=== PATIENT | female | born 1990 | race Caucasian/White ===

== ENCOUNTER 2017-05-17 21:18 | Emergency (ER) | payer OTHER ==
[2017-05-17 21:33] VITALS: BP 106/69; PULSE 77; TEMP 98.1; BMI 24.6
--- NOTE | 2017-05-17 21:40 | PDOC ---
History of Present Illness - General History Source: Patient Exam Limitations: No Limitations - History of Present Illness Initial Comments: 05/17/17 23:44 The patient is a 27 year old female, , 15 weeks old , with past medical history of ectopic who presents to the ED with lower abdominal pain that began last night. The patient states that the pain began last night while at work and states it has been worsening ever since. She rates the pain 8/10 in severity and states it is radiating towards the sides but not her back. It is worsened when she lies down and has no alleviating factors. It is associated with nausea, and the patient states she has been spitting up yellow sputum.The patient relates her pain to the same pain she felt while having her ectopic . She denies any vaginal bleeding, genital pain, dysuria, hematuria, or other urinary symptoms. The patient complains of fever, but in the ED she is afebrile. She denies cough, CP, SOB. <Nelda Valle - Last Filed: 05/17/17 23:44> <Ashely Patel - Last Filed: 05/18/17 01:04> - General Chief Complaint: Pain Stated Complaint: PAIN (15WKS ) Time Seen by Provider: 05/17/17 21:39 Past History <Nelda Valle - Last Filed: 05/17/17 23:44> - Past Medical History Other medical history: low bp - Immunization History Immunization Up to Date: Yes - Suicide/Smoking/Psychosocial Hx Smoking History: Never smoked Hx Alcohol Use: No Substance Use Type: None <Ashely Patel - Last Filed: 05/18/17 01:04> - Past Medical History Allergies/Adverse Reactions: Allergies Allergy/AdvReac Type Severity Reaction Status Date / Time No Known Allergies Allergy Verified 05/17/17 21:33 Home Medications: Ambulatory Orders NK [No Known Home Medication] 12/25/14 Review of Systems - Review of Systems Able to Perform ROS?: Yes Comments:: 05/17/17 23:44 GENERAL/CONSTITUTIONAL: Present: subjective fever No chills. No weakness. HEAD, EYES, EARS, NOSE AND THROAT: No change in vision. No ear pain or discharge. No sore throat CARDIOVASCULAR: No chest pain or shortness of breath. RESPIRATORY: No cough, wheezing, or hemoptysis. GASTROINTESTINAL: Present: lower abdominal pain, nausea, vomiting No diarrhea or constipation. GENITOURINARY: No dysuria, frequency, or change in urination. MUSCULOSKELETAL: No joint or muscle swelling or pain. No neck or back pain. SKIN: No rash NEUROLOGIC: No headache, vertigo, loss of consciousness, or change in strength/ sensation. ENDOCRINE: No increased thirst. No abnormal weight change. HEMATOLOGIC/LYMPHATIC: No anemia, easy bleeding, or history of blood clots. ALLERGIC/IMMUNOLOGIC: No hives or skin allergy. All Other Systems: Reviewed and Negative <[facility] - Last Filed: 05/17/17 23:44> *Physical Exam - Vital Signs Last Vital Signs Temp Pulse Resp BP Pulse Ox 98.1 F 77 18 106/69 99 05/17/17 21:30 05/17/17 21:30 05/17/17 21:30 05/17/17 21:30 05/17/17 21:30 - Physical Exam Comments: 05/17/17 23:46 GENERAL: Awake, alert, and fully oriented, in no acute distress HEAD: No signs of trauma EYES: PERRLA, EOMI, sclera anicteric, conjunctiva clear ENT: Auricles normal inspection, hearing grossly normal, nares patent, oropharynx clear without exudates. Moist mucosa NECK: Normal ROM, supple, no lymphadenopathy, JVD, or masses LUNGS: Breath sounds equal, clear to auscultation bilaterally. No wheezes, and no crackles HEART: Regular rate and rhythm, normal S1 and S2, no murmurs, rubs or gallops ABDOMEN: Gravid, Soft, nontender, normoactive bowel sounds. No guarding, no rebound. No masses BEDSIDE ULTRASOUND: Single IUP, movement, hr 131 bpm, no free fluid or adnexal masses. EXTREMITIES: Normal range of motion, no edema. No clubbing or cyanosis. No cords, erythema, or tenderness NEUROLOGICAL: Cranial nerves II through XII grossly intact. Normal speech, normal gait <[facility] - Last Filed: 05/17/17 23:44> - Vital Signs Last Vital Signs Temp Pulse Resp BP Pulse Ox 98.1 F 77 18 106/69 99 05/17/17 21:30 05/17/17 21:30 05/17/17 21:30 05/17/17 21:30 05/17/17 21:30 <Ashely Patel - Last Filed: 05/18/17 01:04> Medical Decision Making - Medical Decision Making 05/18/17 01:01 Pt presents to the ED complaining of mild suprapubic pain. Patient is 15 weeks by dates. Denies vaginal bleeding or urinary complaints. Concern for demise, UTI. + IUP with heart and movement on transabdominal US. No evidence of infection on UA. Will discharge home. Patient instructed in comoran to return to the ED for worsening symptoms or vaginal bleeding and to follow up with her OB on Saturday. <Ashely Patel - Last Filed: 05/18/17 01:04> *DC/Admit/Observation/Transfer - Attestations Scribe Attestion: 05/17/17 23:47 Documentation prepared by Nelda Valle, acting as medical malpractice paralegal for Ashely Patel MD. <Nelda Valle - Last Filed: 05/17/17 23:44> - Discharge Dispostion Admit: No <Ashely Patel - Last Filed: 05/18/17 01:04> Diagnosis at time of Disposition: Abdominal pain affecting , antepartum - Discharge Dispostion Disposition: HOME Condition at time of disposition: Good - Patient Instructions Printed Discharge Instructions: DI for Abdominal Pain-Adult Additional Instructions: return to the ED for severe pain, pain with nausea and vomiting, pain with fever , vaginal bleeding. Follow up with your doctor on Saturday.
[2017-05-18 00:14] LABS: URINE APPEARANCE SLCLOUDY; URINE BILIRUBIN NEGATIVE (NEGATIVE); URINE BLOOD NEGATIVE (NEGATIVE); URINE COLOR LTYELLOW; URINE GLUCOSE (UA) NEGATIVE (NEGATIVE); URINE KETONE TRACE (NEGATIVE); URINE NITRITE NEGATIVE (NEGATIVE); URINE PROTEIN NEGATIVE (NEGATIVE); URINE UROBILINOGEN NEGATIVE mg/dL (0.2-1.0)
[2017-05-18 10:04] LABS: URINE LEUK ESTERASE TRACE (NEGATIVE)
== END 2017-05-18 01:32 | disposition home or self-care (01) ==
LOC: JER 21:18
DX: O26.892 Other specified pregnancy related conditions, second trimester (principal); R10.30 Lower abdominal pain, unspecified; Z3A.15 15 weeks gestation of pregnancy
CPT/HCPCS: 81003; 81015; 84703; 99282-25

== ENCOUNTER 2017-10-31 18:20 | Inpatient (IN) | payer OTHER ==
[2017-10-31] MEDS ORDERED: DEXTROSE 5%-LACTATED RINGERS 1,000 ML IV SCH (20:00)
[2017-10-31 20:53] VITALS: BMI 30.2
[2017-10-31] MEDS ORDERED: PROMETHAZINE HCL 25 MG/1 ML VIAL ONE (21:46)
[2017-10-31] MEDS ORDERED: BUTORPHANOL TARTRATE 1 MG/ML VIAL ONE ×2 (21:46)
[2017-10-31] MEDS ORDERED: BUTORPHANOL TARTRATE 1 MG/ML VIAL IVPUSH ONE (21:48)
[2017-10-31] MEDS ORDERED: PROMETHAZINE HCL 25 MG/1 ML VIAL IVPB ONE (21:48)
[2017-10-31] MEDS ORDERED: PROMETHAZINE HCL 25 MG/1 ML VIAL IVPUSH ONE (21:48)
--- NOTE | 2017-10-31 21:54 | HP ---
Past Medical History - Primary Care Physician PCP:: Ranjan Bates - Admission Chief Complaint: 39,4 weeks, labor History of Present Illness: 27 yo f g 2 p010 edc by sono 11/03/17 , 39.4 weeks, in labor cx 5 cm 80. vx -1 , mi, fhr cat ,contraction q 2 to 3 cm History Source: Patient Limitations to Obtaining History: No Limitations - Past Medical History ...: 2 ...Para: 0 ...Term: 0 ...: 0 ...Spon : 1 ...Induced : 0 ...Multiple Gestation: 0 ...LMP: 01/27/17 ... Weeks Gestation by Dates: 39.4 ...EDC by Dates: 11/03/17 ...EDC by Sono: 11/03/17 - Past Surgical History Hx Myomectomy: No Hx Transabdominal Cerclage: No - Smoking History Smoking history: Never smoked Have you smoked in the past 12 months: No - Alcohol/Substance Use Hx Alcohol Use: No - Social History Usual Living Arrangement: Yes: With Spouse History of Recent Travel: No Home Medications - Allergies Allergies/Adverse Reactions: Allergies Allergy/AdvReac Type Severity Reaction Status Date / Time No Known Allergies Allergy Verified 10/31/17 19:07 - Home Medications Home Medications: Ambulatory Orders Iron 1 tab PO DAILY 10/15/17 Vitamins (Sjr) - 1 tab PO DAILY 10/15/17 Diphenhydramine HCl [Benadryl Capsule -] 25 mg PO PRN PRN 10/31/17 Review of Systems - Review of Systems Constitutional: reports: No Symptoms Eyes: reports: No Symptoms HENT: reports: No Symptoms Neck: reports: No Symptoms Cardiovascular: reports: No Symptoms Respiratory: reports: No Symptoms Gastrointestinal: reports: No Symptoms Genitourinary: reports: No Symptoms Breasts: reports: No Symptoms Reported Musculoskeletal: reports: No Symptoms Integumentary: reports: No Symptoms Neurological: reports: No Symptoms Endocrine: reports: No Symptoms Hematology/Lymphatic: reports: No Symptoms Psychiatric: reports: No Symptoms Physical Exam - Maternity Vital Signs: Vital Signs Temperature 98.7 F 10/31/17 20:00 Pulse Rate 71 10/31/17 20:00 Respiratory Rate 18 10/31/17 20:00 Blood Pressure 122/81 10/31/17 20:00 O2 Sat by Pulse Oximetry (%) Constitutional: Yes: Well Nourished, No Distress, Calm Eyes: Yes: WNL, Conjunctiva Clear, EOM Intact HENT: Yes: WNL, Atraumatic, Normocephalic Neck: Yes: WNL, Supple, Trachea Midline Cardiovascular: Yes: WNL, Regular Rate and Rhythm Breast(s): Yes: WNL - Abdominal Exam/OB Fundal Height: 40 Number of Fetuses: Single Presentation: Vertex Contractions: Yes Regularity: Regular Intensity: Mod/Strong Monitor Mode: External Heart Rate Location: LLQ Accelerations: Uniform Decelerations: None - Vaginal Exam/OB Vaginal Bleediing: No Speculum Exam: No Dilatation (cm): 5 cm Effacement (%): 80 Amniotic Membrane Status: Bulging Presentation: Vertex/Position Station: -2 - Physical Exam Musculoskeletal: Yes: WNL Extremities: Yes: Deformity Edema: LLE: Trace, RLE: Trace Deep Tendon Reflex Grade: Normal +2 Psychiatric: Yes: WNL Hemorrhage Risk Assessment - Risk Factors Medium Risk Factors: Yes: None High Risk Factors: Yes: None Risk Score: 1 Risk Level: Medium Risk Problem List - Problems (1) 39 weeks gestation of Code(s): Z3A.39 - 39 WEEKS GESTATION OF (2) Labor established Code(s): CEA4420 - Assessment/Plan plan admit, fhm, pain management
[2017-10-31 22:06] LABS: BASO % 0.5 % (0-2.0); EOS % 0.9 % (0-4.5); HEMATOCRIT 34.2 % (32.4-45.2); HEMOGLOBIN 11.2 GM/dL (10.7-15.3); MCH 23.9 pg (25.7-33.7); MCHC 32.9 g/dl (32.0-36.0); MEAN CELL VOLUME 72.7 fl (80-96); MEAN PLT VOLUME 8.4 fl (7.5-11.1); MONO % 5.8 % (3.8-10.2); NEUT % 76.8 % (42.8-82.8); PLATELET COUNT 313 K/MM3 (134-434); RDW 17.2 % (11.6-15.6); WHITE BLOOD COUNT 6.9 K/mm3 (4.0-10.0)
[2017-10-31 22:24] LABS: INR 0.88 (0.82-1.09); PROTHROMBIN TIME (PATIENT) 9.9 SEC (9.98-11.88)
[2017-10-31 22:27] LABS: ACTIVATED PTT 28.5 SECONDS (26.9-34.4)
[2017-10-31 22:30] LABS: ANION GAP 12 (8-16); BLOOD UREA NITROGEN 9 mg/dL (7-18); CALCIUM 8.7 mg/dL (8.5-10.1); CHLORIDE 104 mmol/L (98-107); CO2 22 mmol/L (21-32); CREATININE 0.5 mg/dL (0.55-1.02); GLUCOSE,RANDOM 79 mg/dL (74-106); POTASSIUM 4.1 mmol/L (3.5-5.1); SODIUM 138 mmol/L (136-145)
[2017-11-01] MEDS ORDERED: BUTORPHANOL TARTRATE 1 MG/ML VIAL ONE ×2 (02:29)
[2017-11-01] MEDS ORDERED: PROMETHAZINE HCL 25 MG/1 ML VIAL ONE (02:29)
[2017-11-01] MEDS ORDERED: PROMETHAZINE HCL 25 MG/1 ML VIAL IVPB ONE (02:45)
[2017-11-01] MEDS ORDERED: BUTORPHANOL TARTRATE 1 MG/ML VIAL IVPB ONE (02:45)
[2017-11-01] MEDS ORDERED: OXYTOCIN 20 UNITS in 0.9% NS 20 UNIT/1,000 ML INFUS.BAG IV ONE (07:08)
[2017-11-01] MEDS ORDERED: LIDOCAINE HCL 1% PRESERVATIVE FREE - 30ML VIAL ONE (07:08)
--- NOTE | 2017-11-01 07:29 | PN ---
Progress Note (short form) - Note Progress Note: cx 9 cm, srom, mec amniotic fluid , fhr cat 1, regular contraction Problem List - Problems (1) 39 weeks gestation of Code(s): Z3A.39 - 39 WEEKS GESTATION OF (2) Labor established Code(s): QQX2707 -
[2017-11-01] MEDS: OXYTOCIN 20 UNITS in 0.9% NS 20 UNIT/1,000 ML INFUS.BAG IV SCH ×2 (08:35→12:00)
[2017-11-01] MEDS ORDERED: BENZOCAINE 20% 57 GM BOTTLE TP PRN (08:49)
[2017-11-01] MEDS ORDERED: METHYLERGONOVINE MALEATE 0.2 MG/1 ML AMP IM PRN (08:49)
[2017-11-01] MEDS ORDERED: WITCH HAZEL 50% (TUCKS) 40 PAD/JAR PAD TP PRN (08:49)
[2017-11-01] MEDS ORDERED: BENZOCAINE 28 GM HEMORRHOIDAL OINTMENT TP PRN (08:49)
[2017-11-01] MEDS ORDERED: oxyCODONE HCL 5 MG TABLET PO PRN (08:49)
[2017-11-01] MEDS ORDERED: BISACODYL 10 MG SUPP.RECT RC PRN (08:49)
[2017-11-01] MEDS ORDERED: D5W-LR W/ 20 UNITS OXYTOCIN 1,000 ML IV SCH (09:00)
[2017-11-01 09:16] LABS: ARTERIAL BLD GAS O2 SATURATION 36.2 % (90-98.9); ARTERIAL BLOOD GAS BASE EXCESS -2.3 meq/l (-2-2); ARTERIAL BLOOD GAS PCO2 49.9 mmHg (35-45); ARTERIAL BLOOD GAS pH 7.31 (7.35-7.45)
[2017-11-01 09:22] LABS: VENOUS PC02 40.4 mmHg (38-52); VENOUS PH 7.36 (7.32-7.42); VENOUS PO2 28.7 mmHg (28-48)
[2017-11-01] MEDS: ACETAMINOPHEN 325 MG TABLET (FP) PO PRN ×2 (09:35→16:26)
[2017-11-01] MEDS: IBUPROFEN 600 MG TABLET (FP) PO PRN ×2 (09:35→16:25)
[2017-11-01] MEDS: PRENATAL VITAMINS W/ FOLIC ACID TABLET (FP) PO SCH (11:31)
[2017-11-01] MEDS: FERROUS SO4 325 MG TABLET (FP) PO SCH ×2 (11:32→21:27)
[2017-11-02] MEDS: ACETAMINOPHEN 325 MG TABLET (FP) PO PRN ×4 (01:36→21:22)
[2017-11-02] MEDS: IBUPROFEN 600 MG TABLET (FP) PO PRN ×4 (01:36→21:21)
[2017-11-02] MEDS ORDERED: CALAMINE 8% TOPICAL LOTION 177 ML BOTTLE TP PRN (08:19)
--- NOTE | 2017-11-02 08:41 | PN ---
Post Progress Note - Subjective Subjective: c/o itching, h/o rash during Post Day: 1 Type of Delivery: Vital Signs: Vital Signs Temperature 98.2 F 11/02/17 06:00 Pulse Rate 69 11/02/17 06:00 Respiratory Rate 20 11/02/17 06:00 Blood Pressure 94/53 11/02/17 06:00 O2 Sat by Pulse Oximetry (%) 100 11/01/17 09:30 Breast Exam: Yes: Soft, Other (plans to BF ). No: Engorged Uterus: Yes: Fundus Firm, Fundus below umbilicus, Non-tender Lochia: Yes: Rubra Lochia, amount: Moderate Extremities: Yes: Calves non-tender Perineum: Yes: Episiotomy (healing. perineal soreness mild ) Activity: Ambulating - Labs Labs: CBC WBC 6.9 K/mm3 (4.0-10.0) 10/31/17 21:20 RBC 4.70 M/mm3 (3.60-5.2) 10/31/17 21:20 Hgb 11.2 GM/dL (10.7-15.3) 10/31/17 21:20 Hct 34.2 % (32.4-45.2) 10/31/17 21:20 MCV 72.7 fl (80-96) L 10/31/17 21:20 MCH 23.9 pg (25.7-33.7) L 10/31/17 21:20 MCHC 32.9 g/dl (32.0-36.0) 10/31/17 21:20 RDW 17.2 % (11.6-15.6) H D 10/31/17 21:20 Plt Count 313 K/MM3 (134-434) 10/31/17 21:20 MPV 8.4 fl (7.5-11.1) D 10/31/17 21:20 Neutrophils % 76.8 % (42.8-82.8) 10/31/17 21:20 Lymphocytes % 16.0 % (8-40) D 10/31/17 21:20 Monocytes % 5.8 % (3.8-10.2) 10/31/17 21:20 Eosinophils % 0.9 % (0-4.5) 10/31/17 21:20 Basophils % 0.5 % (0-2.0) 10/31/17 21:20 Assessment/Plan pp day #1 stable plan cbc today
[2017-11-02 09:31] LABS: BASO % 0.3 % (0-2.0); EOS % 0.8 % (0-4.5); HEMATOCRIT 22.9 % (32.4-45.2); HEMOGLOBIN 7.5 GM/dL (10.7-15.3); LYMPH % 14.2 % (8-40); MCH 24.1 pg (25.7-33.7); MCHC 32.9 g/dl (32.0-36.0); MEAN CELL VOLUME 73.2 fl (80-96); MEAN PLT VOLUME 7.7 fl (7.5-11.1); MONO % 5.1 % (3.8-10.2); NEUT % 79.6 % (42.8-82.8); PLATELET COUNT 235 K/MM3 (134-434); RBC 3.13 M/mm3 (3.60-5.2); RDW 16.8 % (11.6-15.6); WHITE BLOOD COUNT 10.1 K/mm3 (4.0-10.0)
[2017-11-02] MEDS: FERROUS SO4 325 MG TABLET (FP) PO SCH ×2 (10:39→21:21)
[2017-11-02] MEDS: PRENATAL VITAMINS W/ FOLIC ACID TABLET (FP) PO SCH (10:39)
[2017-11-02] MEDS ORDERED: SENNOSIDES/DOCUSATE COMBO (SENNA PLUS) TABLET (UD) PO PRN (22:00)
--- NOTE | 2017-11-03 08:39 | PN ---
Post Progress Note - Subjective Subjective: pt does not c/o dizziness. c/o fatigue Post Day: 2 Type of Delivery: Vital Signs: Vital Signs Temperature 98.4 F 11/02/17 21:00 Pulse Rate 87 11/02/17 21:00 Respiratory Rate 20 11/02/17 21:00 Blood Pressure 113/55 11/02/17 21:00 O2 Sat by Pulse Oximetry (%) 100 11/01/17 09:30 Breast Exam: Yes: Soft. No: Engorged Uterus: Yes: Fundus Firm, Fundus below umbilicus, Non-tender Lochia: Yes: Rubra Lochia, amount: Small Extremities: Yes: Calves non-tender Perineum: Yes: Episiotomy (perineum healing ) Activity: Ambulating - Labs Labs: CBC WBC 10.1 K/mm3 (4.0-10.0) H D 11/02/17 08:00 RBC 3.13 M/mm3 (3.60-5.2) L D 11/02/17 08:00 Hgb 7.5 GM/dL (10.7-15.3) L D 11/02/17 08:00 Hct 22.9 % (32.4-45.2) L D 11/02/17 08:00 MCV 73.2 fl (80-96) L 11/02/17 08:00 MCH 24.1 pg (25.7-33.7) L 11/02/17 08:00 MCHC 32.9 g/dl (32.0-36.0) 11/02/17 08:00 RDW 16.8 % (11.6-15.6) H 11/02/17 08:00 Plt Count 235 K/MM3 (134-434) D 11/02/17 08:00 MPV 7.7 fl (7.5-11.1) 11/02/17 08:00 Neutrophils % 79.6 % (42.8-82.8) 11/02/17 08:00 Lymphocytes % 14.2 % (8-40) 11/02/17 08:00 Monocytes % 5.1 % (3.8-10.2) 11/02/17 08:00 Eosinophils % 0.8 % (0-4.5) 11/02/17 08:00 Basophils % 0.3 % (0-2.0) 11/02/17 08:00 Assessment/Plan anemia s/p vag delivery hemodynamically stable anemia counselled blood transfusion versus expectant management with po iron & pnv, high iron diet r/b/a explained pt declines transfusion . discharge today
[2017-11-03] MEDS: IBUPROFEN 600 MG TABLET (FP) PO PRN (10:18)
[2017-11-03] MEDS: ACETAMINOPHEN 325 MG TABLET (FP) PO PRN (10:18)
[2017-11-03] MEDS: PRENATAL VITAMINS W/ FOLIC ACID TABLET (FP) PO SCH (10:19)
[2017-11-03] MEDS: FERROUS SO4 325 MG TABLET (FP) PO SCH (10:19)
[2017-11-03 12:24] VITALS: BP 100/59; PULSE 77; TEMP 98.2
--- NOTE | 2017-11-07 15:36 | DS ---
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 Signs: Vital Signs Temperature 98.2 F 11/03/17 09:00 Pulse Rate 77 11/03/17 09:00 Respiratory Rate 20 11/03/17 09:00 Blood Pressure 100/59 11/03/17 09:00 O2 Sat by Pulse Oximetry (%) 100 11/01/17 09:30 Constitutional: Yes: Well Nourished, No Distress, Calm Eyes: Yes: WNL, Conjunctiva Clear, EOM Intact HENT: Yes: WNL, Atraumatic, Normocephalic Neck: Yes: WNL, Supple, Trachea Midline Cardiovascular: Yes: WNL, Regular Rate and Rhythm Respiratory: Yes: WNL, Regular, CTA Bilaterally Gastrointestinal: Yes: WNL ...Rectal Exam: Yes: WNL Renal/: Yes: WNL ....Post : Yes: Uterus firm, Uterus non-tender, Slight lochia rubra Breast(s): Yes: WNL Musculoskeletal: Yes: WNL Extremities: Yes: WNL Edema: No Integumentary: Yes: WNL Neurological: Yes: WNL, Alert, Oriented ...Motor Strength: WNL Psychiatric: Yes: WNL, Alert, Oriented Labs: CBC, BMP 11/02/17 08:00 10/31/17 21:20 Delivery - Delivery Vaginal Delivery: Spontaneous (no complication) Type of Anesthesia: Local Episiotomy/Laceration: Midline EBL (cc): 500 Delivery, Single - Stages of Labor Date 1st Stage Initiatied: 10/31/17 Time 1st Stage Initiated: 13:00 Date 2nd Stage Initiated: 11/01/17 Time 2nd Stage Initiated: 07:00 Date of Delivery: 11/01/17 Time of Delivery: 08:25 Time Placenta Delivered: 08:30 - 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 [employer] Present: No Gender: Male Weight: 7 lb 14 oz Total Hours ROM (Hrs/Mins): 1HR/45MIN - 1 Minute Total Score: 9 5 Minutes Total Score: 9 - Feeding Plan Initial Plan: Elected not to breastfeed exclusively throughout hospitalization Discharge Summary Reason For Visit: LABOR Procedures: Principal: Hospital Course: no complication Condition: Stable - Instructions Diet, Activity, Other Instructions: Discharge Instructions * Out of Bed * * Regular Diet,high iron diet * Maira Care * Avoid sex for 6 weeks If you experience excessive bleeding or fever over 101 degrees, call doctor, the clinic or go to the Emergency Room. Referrals: Ranjan Bates MD [Staff Physician] - Disposition: HOME - Home Medications Comprehensive Discharge Medication List: Ambulatory Orders Iron 1 tab PO DAILY 10/15/17 Vitamins (Sjr) - 1 tab PO DAILY 10/15/17 Diphenhydramine HCl [Benadryl Capsule -] 25 mg PO PRN PRN 10/31/17 Acetaminophen [Tylenol .Regular Strength -] 650 mg PO Q3H PRN tablet 11/02/17 Benzocaine [Americaine 20% [place] -] 1 spray TP PRN PRN bottle 11/02/17 Calamine 8% Topical Lotion - 1 applic TP QID PRN bottle 11/02/17 Ferrous Sulfate [Feosol] 325 mg PO BID #60 tab 11/02/17 Ibuprofen [Motrin -] 200 mg PO Q4H PRN tablet 11/02/17 Vitamins (Sjr) - 1 tab PO DAILY #30 tablet 11/02/17
== END 2017-11-03 13:30 | disposition home or self-care (01) | DRG 560 ==
LOC: JDEL 18:20 → JLDR 20:00 → J3W 11-01 10:41
PROVIDERS: ADMIT Obstetrics & Gynecology; ATTEND Obstetrics & Gynecology
PROC: 0W8NXZZ Division of Female Perineum, External Approach (ICD-10-PCS; principal; 2017-11-01)
DX: O99.02 Anemia complicating childbirth (principal); D64.9 Anemia, unspecified; Z3A.39 39 weeks gestation of pregnancy; Z37.0 Single live birth
CPT/HCPCS: 36415; 36600; 59409; 80048; 82803; 85025; 85610; 85730; 86593; 86850; 86900; 86901

== ENCOUNTER 2018-01-16 17:33 | Inpatient (IN) | payer OTHER ==
--- NOTE | 2018-01-16 17:41 | PDOC ---
Rapid Medical Evaluation Time Seen by Provider: 01/16/18 17:39 Medical Evaluation: Allergies Allergy/AdvReac Type Severity Reaction Status Date / Time No Known Allergies Allergy Verified 10/31/17 19:07 I have performed a brief in-person evaluation of this patient. The patient presents with a chief complaint of: epigastric pain today Pertinent physical exam findings: pain with palpation of epigastric region I have ordered the following: hcg The patient will proceed to the ED for further evaluation. Discharge Disposition - Diagnosis Epigastric abdominal pain - Referrals - Patient Instructions - Post Discharge Activity
--- NOTE | 2018-01-16 18:40 | PDOC ---
History of Present Illness - General Chief Complaint: Pain Stated Complaint: ABDOMINAL AND SIDE PAIN Time Seen by Provider: 01/16/18 17:39 - History of Present Illness Initial Comments: Previously healthy 27 year old female with 01/16/18 19:01 Past History - Past Medical History Allergies/Adverse Reactions: Allergies Allergy/AdvReac Type Severity Reaction Status Date / Time No Known Allergies Allergy Verified 01/16/18 17:42 Home Medications: Ambulatory Orders Ibuprofen [Motrin -] 200 mg PO Q4H PRN tablet 11/02/17 Vitamins (Sjr) - 1 tab PO DAILY #30 tablet 11/02/17 Asthma: No Cancer: No Cardiac Disorders: No Diabetes: No HTN: No Seizures: No Thyroid Disease: No - Reproductive History (#): 2 Para: 1 - Immunization History Immunization Up to Date: Yes - Suicide/Smoking/Psychosocial Hx Smoking History: Never smoked Have you smoked in the past 12 months: No Hx Alcohol Use: No Drug/Substance Use Hx: No Substance Use Type: None Hx Substance Use Treatment: No *Physical Exam - Vital Signs Last Vital Signs Temp Pulse Resp BP Pulse Ox 98 F 69 20 104/55 99 01/16/18 17:35 01/16/18 17:35 01/16/18 17:35 01/16/18 17:35 01/16/18 17:35 *DC/Admit/Observation/Transfer Diagnosis at time of Disposition: Epigastric abdominal pain - Referrals - Patient Instructions - Post Discharge Activity
--- NOTE | 2018-01-16 19:26 | PDOC ---
Attending Attestation - HPI HPI: 01/16/18 19:27 The patient is a 27 year old female with a significant PMH of cholestasis who presents to the emergency department right upper quadrant and epigastric pain during her . The patient states the RUQ and epigastric pain is worsened after eating spicy foods. The patient denies any burning sensation in her chest of sour taste in her mouth. The patient denies chest pain, shortness of breath, headache and dizziness. Denies fever, chills, nausea, vomit, diarrhea and constipation. Denies dysuria, frequency, urgency and hematuria. Allergies: NKA Past surgical history: None reported. Social history: No reported alcohol, drug, or cigarette use. - Physicial Exam PE: 01/16/18 19:26 Constitutional: Awake, alert, oriented. No acute distress. Head: Normocephalic. Atraumatic Eyes: PERRL. EOMI. Conjunctivae are not pale. Neck: Supple. Full ROM. No lymphadenopathy. Cardiovascular: Regular rate. Regular rhythm. S1, S2 regular. Distal pulses are 2+ and symmetric. Pulmonary/Chest: No evidence of respiratory distress. Clear to auscultation bilaterally No wheezing, rales or rhonchi. Abdominal: (+) Tenderness to the epigastrium and right upper quadrant. (+) Voluntary guarding. Soft and non-distended. No rebound or rigidity. No organomegaly. No palpable masses. Good bowel sounds. Back: No CVA tenderness. Musculoskeletal: No edema. No cyanosis. No clubbing. Full range of motion in all extremities. Nocalf tenderness. Radial/pedal pulses are intact and 2+ bilaterally Skin: Skin is warm and dry. No petechiae. No purpura. Neurological: Alert and oriented to person, place, and time. Cranial nerves II -XII are grossly intact. Normal speech. Strength is grossly symmetric. No sensory deficits. Psychiatric: Good eye contact. Normal interaction, affect and behavior. - Medical Decision Making <Savannah Klein - Last Filed: 01/16/18 19:34> - Resident Resident Name: Marylin Noble - ED Attending Attestation I have performed the following: I have examined & evaluated the patient, The case was reviewed & discussed with the resident, I agree w/resident's findings & plan, Exceptions are as noted - Medical Decision Making 01/16/18 19:23 I, Dr. Anabell Daugherty, DO, attest that this document has been prepared under my direction and personally reviewed by me in its entirety. I further attest, that it accurately reflects all work, treatment, procedures and medical decision -making performed by me. 01/16/18 19:23 a/p: 27yo female with hx of cholestasis during her preg with RUQ and epigastric pain -no sour taste in mouth or burning in chest -pain after eating spicy food -differential includes PUD, pancreatitis, Biliary colic -will obtain labs, RUQ u/s -will medicate and reassess -IV placed 01/16/18 20:59 pt with elevated LFT pt with cholelithiasis on ultrasound pt with pain on exam will discuss with Surgery 01/16/18 22:03 pt with elevated WBC, elevated lft, gallstones and pain willing to stay for surgery eval call placed to [facility] 01/16/18 22:[address] Perez - will place in obs to diann will start abx <Anabell Daugherty - Last Filed: 01/16/18 22:26>
[2018-01-16 19:35] LABS: BASO % 0.4 % (0-2.0); EOS % 0.4 % (0-4.5); HEMOGLOBIN 11.4 GM/dL (10.7-15.3); LYMPH % 8.8 % (8-40); MCH 24.3 pg (25.7-33.7); MCHC 32.6 g/dl (32.0-36.0); MEAN CELL VOLUME 74.4 fl (80-96); MEAN PLT VOLUME 7.7 fl (7.5-11.1); MONO % 5.4 % (3.8-10.2); PLATELET COUNT 490 K/MM3 (134-434); WHITE BLOOD COUNT 13.1 K/mm3 (4.0-10.0)
[2018-01-16 19:55] LABS: INR 0.96 (0.82-1.09); PROTHROMBIN TIME (PATIENT) 10.8 SEC (9.7-13.0)
[2018-01-16 20:05] LABS: ALBUMIN 4.4 g/dl (3.4-5.0); ALK PHOS 172 U/L (45-117); ANION GAP 10 (8-16); BILIRUBIN,TOTAL 0.5 mg/dL (0.2-1.0); BLOOD UREA NITROGEN 15 mg/dL (7-18); CALCIUM 9.4 mg/dL (8.5-10.1); CHLORIDE 102 mmol/L (98-107); CO2 29 mmol/L (21-32); CREATININE 0.7 mg/dL (0.55-1.02); GLUCOSE,RANDOM 108 mg/dL (74-106); LIPASE 177 U/L (73-393); POTASSIUM 3.9 mmol/L (3.5-5.1); SGOT/AST 143 U/L (15-37); SGPT/ALT 114 U/L (12-78); SODIUM 141 mmol/L (136-145); TOT PROT 8.6 g/dl (6.4-8.2)
[2018-01-16 20:07] LABS: URINE APPEARANCE CLOUDY; URINE BILIRUBIN NEGATIVE (<2.0 mg/dL); URINE COLOR YELLOW; URINE GLUCOSE (UA) NEGATIVE (NEGATIVE); URINE KETONE NEGATIVE (NEGATIVE); URINE LEUK ESTERASE NEGATIVE (NEGATIVE); URINE NITRITE NEGATIVE (NEGATIVE); URINE UROBILINOGEN 4.0 E.U/dl mg/dL (0.2-1.0)
[2018-01-16 20:08] LABS: URINE PROTEIN 1+ (NEGATIVE)
[2018-01-16 20:15] LABS: EPI CELLS FEW /HPF (FEW); URINE MUCUS MANY
[2018-01-16] MEDS ORDERED: FAMOTIDINE 20 MG/50 ML IVPB 20 MG/50 ML MG IVPB ONE ×2 (21:58→22:05)
[2018-01-16] MEDS ORDERED: ONDANSETRON 4 MG/2 ML VIAL IVPUSH ONE (21:58)
[2018-01-16] MEDS ORDERED: SODIUM CHLORIDE 0.9% 1000 ML INFUS.BAG IV ONE (21:58)
[2018-01-16] MEDS ORDERED: morphine CARPU-JECT 2 MG/1 ML DISP.SYRIN IVPUSH ONE (21:58)
[2018-01-16] MEDS ORDERED: MORPHINE SULFATE 2 MG/ML VIAL ONE (22:04)
[2018-01-16] MEDS ORDERED: ONDANSETRON 4 MG/2 ML VIAL ONE (22:05)
--- NOTE | 2018-01-16 22:18 | HP ---
Admitting History and Physical - Admission Chief Complaint: abdominal pain History of Present Illness: 27 yo female PMH cholestasis, cholecystitis during presents to the emergency department right upper quadrant and epigastric pain during her . The patient states the RUQ and epigastric pain is worsened after eating spicy foods. The patient denies any burning sensation in her chest of sour taste in her mouth. The patient denies chest pain, shortness of breath, headache and dizziness. Denies fever, chills, nausea, vomit, diarrhea and constipation. We were asked to assess History Source: Patient, Medical Record Limitations to Obtaining History: No Limitations - Past Medical History ...LMP: 01/16/18 - Smoking History Smoking history: Never smoked Have you smoked in the past 12 months: No - Alcohol/Substance Use Hx Alcohol Use: No History of Substance Use: reports: None - Social History Usual Living Arrangement: Yes: With Spouse History of Recent Travel: No Home Medications - Allergies Allergies/Adverse Reactions: Allergies Allergy/AdvReac Type Severity Reaction Status Date / Time No Known Allergies Allergy Verified 01/16/18 17:42 - Home Medications Home Medications: Ambulatory Orders Ibuprofen [Motrin -] 200 mg PO Q4H PRN tablet 11/02/17 Vitamins (Sjr) - 1 tab PO DAILY #30 tablet 11/02/17 Review of Systems - Review of Systems Constitutional: denies: Chills, Fever Eyes: denies: Blurred Vision, Recent Change in Vision HENT: denies: Difficult Swallowing, Throat Pain Neck: denies: Lumps, Swollen Glands Cardiovascular: denies: Chest Pain, Palpitations Gastrointestinal: reports: Abdominal Pain, Indigestion Genitourinary: denies: Discharge, Dysuria Breasts: reports: No Symptoms Reported. denies: Pain Musculoskeletal: denies: Muscle Pain, Muscle Weakness Integumentary: denies: Lesions, Rash Neurological: denies: Seizure, Syncope, Weakness Endocrine: denies: Unexplained Weight Gain, Unexplained Weight Loss Hematology/Lymphatic: denies: Easily Bruised, Excessive Bleeding Psychiatric: denies: Anxiety, Depression Physical Examination Vital Signs: Vital Signs Temperature 98 F 01/16/18 17:35 Pulse Rate 69 01/16/18 17:35 Respiratory Rate 20 01/16/18 17:35 Blood Pressure 104/55 01/16/18 17:35 O2 Sat by Pulse Oximetry (%) 99 01/16/18 17:35 Vital Signs Period Temp Pulse Resp BP Sys/Boykin Pulse Ox Last 24 Hr 97.7 F-98.4 F 57-69 18-20 102-130/51-79 95-99 Constitutional: Yes: Well Nourished, No Distress, Calm Eyes: Yes: Conjunctiva Clear, EOM Intact HENT: Yes: Atraumatic, Normocephalic Neck: Yes: Supple, Trachea Midline Cardiovascular: Yes: Regular Rate and Rhythm, S1, S2 Respiratory: Yes: Regular, CTA Bilaterally Gastrointestinal: Yes: Normal Bowel Sounds, Soft, Tenderness (RUQ, = murphys), Tenderness, Epigastrium, Tenderness, Rebound ...Rectal Exam: Yes: Deferred Renal/: No: CVA Tenderness - Left, CVA Tenderness - Right Musculoskeletal: No: Muscle Pain, Muscle Weakness Extremities: No: Cool, Cyanosis Edema: No Peripheral Pulses WNL: Yes Peripheral Pulses: Left Radial: 2+, Right Radial: 2+, Left Doralis Pedis: 2+, Right Dorsalis Pedis: 2+ Integumentary: No: Jaundice, Rash Neurological: Yes: Alert, Oriented Psychiatric: Yes: Alert, Oriented Labs: CBC, BMP 01/16/18 19:20 01/16/18 19:20 Imaging - Results Cat Scan: Report Reviewed, Image Reviewed (gallbladder disetnded with stones) Problem List - Problems (1) Calculus of gall bladder and bile duct with nonacute cholecystitis with obstruction Assessment/Plan: 27 yo female with chronic cholecystititis with intractable abdominal pain NPO and IVF hydration IV antibiotics adequate analgesia Discussed with patient risks, benefits and alternatives of laparoscopic possible open cholecystectomy, including but not limited to bleeding, infection , injury to adjacent structures, leak or injury, intraabdominal abscess, need for further procedures, ; alternatives include antibiotics, delayed or no surgery - risks of this include failure of nonoperative therapy, perforation, sepsis, recurrence, . Patient desires to proceed with operation - will take to OR for above. Informed consent signed for same. Code(s): K80.61 - CALCULUS OF GB AND BILE DUCT W CHOLECYST, UNSP, W OBST (2) Epigastric abdominal pain Code(s): R10.13 - EPIGASTRIC PAIN (3) Abdominal pain in female patient Code(s): R10.9 - UNSPECIFIED ABDOMINAL PAIN (4) Leukocytosis Code(s): D72.829 - ELEVATED WHITE BLOOD CELL COUNT, UNSPECIFIED Qualifiers: Leukocytosis type: unspecified Qualified Code(s): D72.829 - Elevated white blood cell count, unspecified
[2018-01-16] MEDS ORDERED: ONDANSETRON 4 MG/2 ML VIAL IVPUSH PRN (22:19)
[2018-01-16] MEDS ORDERED: ACETAMINOPHEN 325 MG TABLET (FP) PO PRN (22:19)
[2018-01-16] MEDS ORDERED: morphine SULFATE 4 MG/ML VIAL IVPUSH PRN (22:19)
[2018-01-16] MEDS: LACTATED RINGERS SOLUTION 1,000 ML IV SCH (23:08)
[2018-01-17 02:58] VITALS: BMI 26.4
[2018-01-17] MEDS: LACTATED RINGERS SOLUTION 1,000 ML IV SCH (05:51)
[2018-01-17 07:37] LABS: BASO % 0.6 % (0-2.0); EOS % 1.6 % (0-4.5); HEMATOCRIT 30.6 % (32.4-45.2); HEMOGLOBIN 10.2 GM/dL (10.7-15.3); MCH 24.7 pg (25.7-33.7); MCHC 33.2 g/dl (32.0-36.0); MEAN CELL VOLUME 74.5 fl (80-96); MEAN PLT VOLUME 7.6 fl (7.5-11.1); MONO % 9.5 % (3.8-10.2); NEUT % 62.3 % (42.8-82.8); PLATELET COUNT 393 K/MM3 (134-434); RBC 4.11 M/mm3 (3.60-5.2); WHITE BLOOD COUNT 5.8 K/mm3 (4.0-10.0)
[2018-01-17 07:41] LABS: INR 1.04 (0.82-1.09); PROTHROMBIN TIME (PATIENT) 11.8 SEC (9.7-13.0)
[2018-01-17] MEDS ORDERED: CEFOXITIN SODIUM 2 GM in DEXTROSE 5%-WATER - 100 ML IVPB ONE (08:00)
[2018-01-17 08:32] LABS: CHLORIDE 108 mmol/L (98-107); POTASSIUM 4.1 mmol/L (3.5-5.1); SODIUM 143 mmol/L (136-145)
[2018-01-17 08:38] LABS: ALBUMIN 3.1 g/dl (3.4-5.0); ALK PHOS 132 U/L (45-117); AMYLASE 35 U/L (25-115); ANION GAP 9 (8-16); BILIRUBIN,TOTAL 0.5 mg/dL (0.2-1.0); BLOOD UREA NITROGEN 10 mg/dL (7-18); CALCIUM 8.5 mg/dL (8.5-10.1); CO2 26 mmol/L (21-32); CREATININE 0.5 mg/dL (0.55-1.02); GLUCOSE,RANDOM 84 mg/dL (74-106); LIPASE 99 U/L (73-393); SGOT/AST 86 U/L (15-37); SGPT/ALT 102 U/L (12-78); TOT PROT 6.3 g/dl (6.4-8.2)
--- NOTE | 2018-01-17 08:44 | EKG ---
Test Reason : Blood Pressure : / mmHG Vent. Rate : 059 BPM Atrial Rate : 059 BPM P-R Int : 154 ms QRS Dur : 072 ms QT Int : 434 ms P-R-T Axes : 056 048 035 degrees QTc Int : 429 ms SINUS BRADYCARDIA WITH SINUS ARRHYTHMIA NONSPECIFIC T WAVE ABNORMALITY NO PREVIOUS ECGS AVAILABLE Confirmed by DAY RAMOS MD ([id number]) on 01/17/2018 8:44:42 AM Referred By: Confirmed By:DAY RAMOS MD
[2018-01-17] MEDS ORDERED: PT OWN MED DRAWER 7, Y5N ONE (08:58)
[2018-01-17] MEDS ORDERED: BUPIVACAINE HCL/PF 0.5% (5MG/ML) 10 ML VIAL ONE (10:51)
[2018-01-17] MEDS ORDERED: MIDAZOLAM HCL 2 MG/2 ML SINGLE DOSE VIAL ONE (12:02)
[2018-01-17] MEDS ORDERED: PROPOFOL 20 ML ONE (12:03)
[2018-01-17] MEDS ORDERED: ROCURONIUM BROMIDE 50 MG/5 ML VIAL ONE (12:03)
[2018-01-17] MEDS ORDERED: BUPIVACAINE HCL/PF (5 MG/ML) 30 ML VIAL IJ ONE (13:21)
[2018-01-17] MEDS ORDERED: NEOSTIGMINE METHYLSULFATE 0.5 MG/ML - 10 ML MDV ONE (13:22)
--- NOTE | 2018-01-17 13:36 | OP ---
Operative Note - Note: Operative Date: 01/17/18 Pre-Operative Diagnosis: acute cholecystitis Operation: laparoscopic cholecystectomy Findings: distended GB with stones. critical view identified Post-Operative Diagnosis: Same as Pre-op Surgeon: Jose Perez Linen Room Custodian: Kishan Brewster Anesthesiologist/RN SURGICAL PCU: Jennifer Florez MD Anesthesia: General, Local (0.5% marcaine ) Specimens Removed: gallbladder Estimated Blood Loss (mls): 20 Fluid Volume Replaced (mls): 1,000 Operative Report Dictated: Yes
[2018-01-17] MEDS ORDERED: ACETAMINOPHEN 325 MG TABLET (FP) PO PRN ×2 (13:46→13:50)
[2018-01-17] MEDS ORDERED: IBUPROFEN 600 MG TABLET (FP) PO PRN ×2 (13:46→13:50)
[2018-01-17] MEDS ORDERED: ONDANSETRON 4 MG/2 ML VIAL IVPB PRN (13:47)
[2018-01-17] MEDS ORDERED: ONDANSETRON 4 MG/2 ML VIAL IVPUSH PRN ×2 (13:50→14:09)
[2018-01-17] MEDS ORDERED: LACTATED RINGERS SOLUTION 1,000 ML IV SCH ×2 (13:50→14:15)
--- NOTE | 2018-01-17 14:30 | CON.ID ---
Consult Consult Specialty:: infectious ndiseases Referred by:: Reason for Consultation:: choleycystitis during - History of Present Illness Chief Complaint: abd pain ruq History of Present Illness: 27 yo female PMH cholestasis, cholecystitis during presents to the emergency department right upper quadrant and epigastric pain during her . according tot he patient she has been having this rt upper quadrant pain for some time and food worsens the pain patient came to the hospital because the pain had increased.Was worked up and found to have leukocytosis and choleylithiasis patient was seen by surgery and patient underwent lap cholecystectomy. post op pain present otherwise the patient is doing well - History Source History Provided By: Family Member Limitations to Obtaining History: Language Barrier - Past Medical History ...LMP: 01/16/18 ...: No - Alcohol/Substance Use Hx Alcohol Use: No History of Substance Use: reports: None - Smoking History Smoking history: Never smoked Have you smoked in the past 12 months: No - Social History History of Recent Travel: No Home Medications - Allergies Allergies/Adverse Reactions: Allergies Allergy/AdvReac Type Severity Reaction Status Date / Time No Known Allergies Allergy Verified 01/16/18 17:42 - Home Medications Home Medications: Ambulatory Orders Ibuprofen [Motrin -] 200 mg PO Q4H PRN tablet 11/02/17 Vitamins (Sjr) - 1 tab PO DAILY #30 tablet 11/02/17 Review of Systems - Review of Systems Constitutional: reports: No Symptoms Eyes: reports: No Symptoms HENT: reports: No Symptoms Neck: reports: No Symptoms Cardiovascular: reports: No Symptoms Respiratory: reports: No Symptoms Gastrointestinal: reports: Abdominal Pain, Other Genitourinary: reports: No Symptoms Musculoskeletal: reports: No Symptoms Integumentary: reports: No Symptoms Neurological: reports: No Symptoms Endocrine: reports: No Symptoms Hematology/Lymphatic: reports: No Symptoms Psychiatric: reports: No Symptoms Physical Exam Vital Signs: Vital Signs Temperature 97.8 F 01/17/18 13:32 Pulse Rate 54 L 01/17/18 13:32 Respiratory Rate 14 01/17/18 13:32 Blood Pressure 105/57 01/17/18 13:32 O2 Sat by Pulse Oximetry (%) 100 01/17/18 13:32 Constitutional: Yes: Well Nourished, Calm, Mild Distress Eyes: Yes: Conjunctiva Clear HENT: Yes: Atraumatic, Normocephalic Neck: Yes: Supple, Trachea Midline Cardiovascular: Yes: Regular Rate and Rhythm Respiratory: Yes: Regular, CTA Bilaterally Gastrointestinal: Yes: Soft, Hypoactive Bowel Sounds Musculoskeletal: Yes: WNL Extremities: Yes: WNL Wound/Incision: Yes: Clean/Dry, Dressing Dry and Intact Neurological: Yes: Alert, Oriented Psychiatric: Yes: Alert, Oriented Labs: CBC, BMP 01/17/18 06:16 01/17/18 06:16 Imaging - Results Ultrasound: Report Reviewed, Image Reviewed Assessment/Plan Problem List - Problems (1) Calculus of gall bladder and bile duct with nonacute cholecystitis with obstruction Code(s): K80.61 - CALCULUS OF GB AND BILE DUCT W CHOLECYST, UNSP, W OBST (2) Epigastric abdominal pain Code(s): R10.13 - EPIGASTRIC PAIN (3) Abdominal pain in female patient Code(s): R10.9 - UNSPECIFIED ABDOMINAL PAIN (4) Leukocytosis Code(s): D72.829 - ELEVATED WHITE BLOOD CELL COUNT, UNSPECIFIED Qualifiers: Leukocytosis type: unspecified Qualified Code(s): D72.829 - Elevated white blood cell count, unspecified plan patients leukocytosis has resolved ,patient stable will hold of on continuning the abx and watch the patient rest continue per surgery monitor for fevers
[2018-01-17] MEDS: morphine SULFATE 4 MG/ML VIAL IVPUSH PRN ×2 (15:39→20:19)
[2018-01-18] MEDS: morphine SULFATE 4 MG/ML VIAL IVPUSH PRN (00:51)
--- NOTE | 2018-01-18 05:59 | DS ---
Physical Examination Vital Signs: Vital Signs Temperature 98.2 F 01/18/18 03:42 Pulse Rate 72 01/18/18 03:42 Respiratory Rate 16 01/18/18 03:42 Blood Pressure 102/50 01/18/18 03:42 O2 Sat by Pulse Oximetry (%) 95 01/17/18 21:00 Findings/Remarks: Patient seen and exmained s/p lap cholecystectomy. She was stable overnight, tolerating her diet and having normal GI and function. Using IS and ambulating. resolved leukocytosis and afebrile. Stable for discharge home. Constitutional: Yes: Well Nourished, No Distress, Calm Eyes: Yes: Conjunctiva Clear, EOM Intact HENT: Yes: Atraumatic, Normocephalic Neck: Yes: Supple, Trachea Midline Cardiovascular: Yes: Regular Rate and Rhythm, S1, S2 Respiratory: Yes: Regular, CTA Bilaterally Gastrointestinal: Yes: Normal Bowel Sounds, Soft Extremities: No: Cool, Cyanosis Edema: No Peripheral Pulses WNL: Yes Peripheral Pulses: Left Doralis Pedis: 2+, Right Dorsalis Pedis: 2+ Wound/Incision: Yes: Clean/Dry, Well Approximated, Dressing Dry and Intact Neurological: Yes: Alert, Oriented Psychiatric: Yes: Alert, Oriented Labs: CBC, BMP 01/17/18 06:16 01/17/18 06:16 Discharge Summary Reason For Visit: CHOLELITHIASIS Current Active Problems Abdominal pain in female patient (Acute) Calculus of gall bladder and bile duct with nonacute cholecystitis with obstruction (Acute) Epigastric abdominal pain (Acute) Leukocytosis (Acute) Procedures: Principal: laparoscopic cholecystectomy Hospital Course: Admitted for acute on chronic cholecystitis. Taken for an uneventul laparoscopic cholecystectomy. Stable for discharge home. Condition: Improved - Instructions Diet, Activity, Other Instructions: Postoperative instructions: You had a laparoscopic cholecystectomy on 01/17/[address] Jose Perez of [facility]. Activity: Resume your usual activities gradually, but no heavy exertion or lifting more than 10-15 pounds for 1 month. Remove dressings 48 hours after surgery; sticky tapes underneath will fall off by themselves. You may shower daily starting then, just pat the incision areas dry. Eat lightly at first, but advance to your usual diet as tolerated. Pain: For pain, you may use and alternate Tylenol (acetaminophen) and/or ibuprofen every 6 hours each as needed; this means that you can take one OR the other at 3-hour intervals. If you are prescribed a Tylenol/narcotic combination for severe pain, use it instead of plain Tylenol as needed and switch back when your pain starts decreasing. Do not take more than 4000mg of acetaminophen in a day. Take medications as prescribed or indicated on the labeling. Follow-up: Call Dr. Perez' office at [phone] to make your postop appointment (Saturday ~2 weeks after surgery). Clinic is held in the Diagnostic [facility] on the first floor of [facility]. Call the office if you have: * increasing pain not responsive to pain medication * fever of 101F or higher * vomiting * unusual or increasing bleeding or drainage from wounds * increasing redness or swelling at wound sites * inability to urinate Also, see your primary medical doctor within 1-2 weeks. Disposition: HOME - Home Medications Comprehensive Discharge Medication List: Ambulatory Orders Ibuprofen [Motrin -] 200 mg PO Q4H PRN tablet 11/02/17 Vitamins (Sjr) - 1 tab PO DAILY #30 tablet 11/02/17
[2018-01-18 13:44] VITALS: BP 106/60; PULSE 85; TEMP 98.9
--- NOTE | 2018-01-19 13:58 | OP ---
DATE OF OPERATION: 01/17/2018 PREOPERATIVE DIAGNOSIS: Acute cholecystitis. POSTOPERATIVE DIAGNOSIS: Acute cholecystitis. PROCEDURE: Laparoscopic cholecystectomy. ATTENDING SURGEON: Jose Perez MD SPOT CHECKER: Kishan Brewster MD ANESTHESIA: Jennifer Florez MD ANESTHESIA TYPE: General with local, local consisting of 0.5% Marcaine, a total of 20 mL given in an area block fashion. SPECIMEN: Gallbladder. ESTIMATED BLOOD LOSS: 20 mL. ESTIMATED IV FLUIDS ADMINISTERED DURING THE CASE: 1 L. BRIEF FINDINGS: The patient had a distended gallbladder with stones. Critical view was identified. Weck clips used. INDICATION: The patient is a 27-year-old female with a history of extdn-rv-[id number] cholecystitis. She had this during her 2 months ago, she had a return of symptoms. There was intractable abdominal pain in her right upper quadrant. She was counseled regarding the risks, benefits, and alternatives of the surgical cholecystectomy. She signed informed consent and was taken for the procedure. DESCRIPTION OF THE PROCEDURE: The patient was brought to the operating room. She was placed in the supine position on the operating table with the right arm tucked and the left arm extended 90 degrees perpendicular to the bodys axis. Lower extremities and SCDs were placed to Venodyne. The patient received intravenous antibiotics prior to surgery. The patient was induced under general anesthesia and endotracheally intubated at which point we proceeded first with a sterile shave prep and drape of the abdominal wall blocking into a surgical field for the right upper quadrant approach. When this was completed a formal time-out was done identifying the operative site and procedure. We proceeded first with a supraumbilical approach in the midline with Valentin entry in to the abdomen. It was inscribed with a marker and incised with a 15-blade scalpel. It was deep and widened through the subcutaneous tissue. We proceeded then to identify the anterior abdominal lees midline fascia which was grasped with Kochers and then divided using Bovie cautery. A blunt entry was made with a clamp towards the umbilicus into the abdomen and spread. A 12-mm Valentin trocar was then installed into the abdomen and pneumoperitoneum was established to 15 mm of mmHg. After establishing the pneumoperitoneum, we began to first inspect the right upper quadrant of the gallbladder. It was identified. A subxiphoid 5-mm port and 2 additional operating points in the right abdomen were initiated under direct visualization. Once in the abdomen we were able to grasp the gallbladder and retract it superiorly. We then turned our attention to identifying the cystic structures. The cystic duct and artery were developed in 2 dissected planes after the peritoneal attachments were taken down. The cystic duct itself was then controlled proximally and distally with Weck clips size 5 large and we then proceeded to identify the cystic artery itself. The cystic artery was also identified and controlled with standard 5 mm aluminum clips. We proceeded then with a division of both structures once the critical view was identified. The cystic artery and duct were divided and then we proceeded to dissect the gallbladder from the hepatic plate using Bovie cautery. Once this was done the gallbladder was then retrieved from the abdomen using an EndoCatch bag. After resetting the camera to the subxiphoid port, the gallbladder was retrieved from the umbilical port. Once retrieved from the abdomen, the pneumoperitoneum was reestablished and hemostasis was obtained using Bovie cautery and the hepatic plate. We then turned our attention finally to removing the ports under direct visualization. This was accomplished without incident. Counts were correct. The midline fascia was then repaired using 0 Vicryl stitch using a [id number] to repair and ablate the fascial defect. The skin was cleaned. I then closed using 4-0 Vicryl at the level for the subcuticular at the 5 mm ports and the umbilicus. The skin was cleaned. Sterile dressings were placed including Steri-Strips, gauze sponges, and Tegaderms. The patient was awoken from surgery having tolerated the procedure well. The patient was returned to recovery in stable condition. MD KARYN Reich/[id number]
--- NOTE | 2018-01-21 14:21 | PATH ---
Surgical Pathology Report Patient Name: FIDEL JAMES Med. Rec. #: [id number] /Age/Gender: 1990 (Age: 27) / F Account: [id number] Location: [address] [place] [address]/[facility] Taken: 01/17/2018 Received: 01/20/2018 Reported: 01/21/2018 Physicians: Jose Perez M.D. PHYSICIAN EMERGENCY DEPT Specimen(s) Received GALLBLADDER Clinical History Cholelithiasis Final Diagnosis GALLBLADDER, CHOLECYSTECTOMY: CHRONIC CHOLECYSTITIS AND CHOLESTEROLOSIS. CHOLELITHIASIS. Electronically Signed Olive Polanco M.D. Gross Description Received in formalin, labeled "gallbladder," is a 6.5 x 3.0 x 2.0 cm. gallbladder with a 0.2 cm. in length portion of cystic duct attached. The outer surface is green and varies from smooth to shaggy. The lumen contains green, tenacious bile as well as multiple yellow choleliths averaging 0.3 cm in greatest dimension. The mucosa is dark green and velvety with torres cholesterol stippling. The wall of the gallbladder averages 0.1 cm. in thickness. Mason Foreman/Superintendant sections are submitted in one cassette. 01/20/2018 [facility]01/20/2018
== END 2018-01-18 13:49 | disposition home or self-care (01) | DRG 263 ==
LOC: JER 17:33 → JERBED 22:10 → OBSVTOIN 22:19 → UNDOADMOB 23:17 → JERBED 23:17 → J5S 01-17 02:03
PROC: 0FT44ZZ Resection of Gallbladder, Percutaneous Endoscopic Approach (ICD-10-PCS; principal; 2018-01-17 11:30)
DX: K80.00 Calculus of gallbladder with acute cholecystitis without obstruction (principal); R10.13 Epigastric pain; D72.829 Elevated white blood cell count, unspecified
CPT/HCPCS: 36415; 76705-TC; 80053; 81003; 81015; 82150; 83690; 84703; 85025; 85610; 86850; 86900; 86901; 88304-TC; 93005; 93010; 94010; 94760; 99285-25; G0378; J7030

== ENCOUNTER 2019-05-07 05:55 | Inpatient (IN) | payer OTHER ==
[2019-05-07 06:25] VITALS: BMI 27.4
[2019-05-07] MEDS ORDERED: CITRIC ACID/SODIUM CITRATE 30 ML UNIT-DOSE CUP PO ONE ×2 (06:54→07:00)
[2019-05-07] MEDS ORDERED: ELECTROLYTE-148 SOLN 1,000 ML IV SCH ×2 (07:00)
[2019-05-07] MEDS ORDERED: ELECTROLYTE-148 SOLN 500 ML IV ONE (07:00)
[2019-05-07] MEDS ORDERED: ELECTROLYTE-148 SOLN 500 ML IV SCH (07:30)
[2019-05-07] MEDS ORDERED: PROPOFOL 20 ML ONE (07:52)
[2019-05-07] MEDS ORDERED: morphine SULFATE/PF 0.5 MG/ML (2cc Syringe - QUVA) ONE (07:52)
[2019-05-07] MEDS ORDERED: PHENYLEPHRINE HCL 10 MG/1 ML SINGLE DOSE VIAL ONE ×2 (07:52→07:53)
[2019-05-07] MEDS ORDERED: SUCCINYLCHOLINE CHLORIDE 200 MG/10 ML SYRINGE ONE (07:52)
[2019-05-07] MEDS ORDERED: ceFAZolin SODIUM 1 GM VIAL ONE (07:53)
[2019-05-07] MEDS ORDERED: OXYTOCIN 20 UNITS in 0.9% NS 20 UNIT/1,000 ML INFUS.BAG IV ONE ×2 (07:58→09:35)
--- NOTE | 2019-05-07 08:11 | HP ---
Past Medical History - Primary Care Physician PCP:: Stephie Patel - Admission Chief Complaint: 28 yrs , ectopic -1 . 39.2 weeks diagnosed breech presentation is admitted for elective c/section History of Present Illness: care at , [facility] Wt gain 10 lbs work up: 12/10/18 : O pos, Hbsag neg, Rubella immune, Rpr nr, hiv neg , rubella immune, , hcv neg pngt 120, Quantiferon neg , h/h 10.7/31.4 , plt 243 04/22/19 : gbs neg, gc/ct neg , HIV neg sono done by [facility] , NT screen not done , Quad screen neg , growth sono done 04/19/19 sono 36.6 wks, breech, portia 14.4, efw 6'11', 44%tile growth . 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 No: Hepatitis B, Hepatitis C Renal/: No: UTI ...: 3 ...Para: 1 (11/03/2017 7lbs ) ...Term: 1 ...: 0 ...Spon : 1 (11/2014 ectopic treated medically ) ...Induced : 0 ...Multiple Gestation: 0 ...LMP: 08/05/18 ... Weeks Gestation by Dates: 39.2 ...EDC by Dates: 05/12/19 ...EDC by Sono: 05/12/19 Heme/Onc: Yes: Anemia (rx po iron & pnv & high iron diet) Infectious Disease: No: AIDS, STD's, Tuberculosis Psych: No: Addictions, Anxiety, Bipolar, Depression, Panic, Psychosis, Schizophrenia, Other Endocrine: No: Diabetes Insipidus, Diabetes Mellitus, Hyperparathyroidism, Hyperthyroidism - Past Surgical History Past Surgical History: Yes: Cholecystectomy (12/2017) Hx Myomectomy: No Hx Transabdominal Cerclage: No - Smoking History Smoking history: Never smoked Have you smoked in the past 12 months: No - Alcohol/Substance Use Hx Alcohol Use: No History of Substance Use: reports: None - Social History History of Recent Travel: No Home Medications - Allergies Allergies/Adverse Reactions: Allergies Allergy/AdvReac Type Severity Reaction Status Date / Time No Known Allergies Allergy Verified 05/07/19 06:40 - Home Medications Home Medications: Ambulatory Orders Ibuprofen [Motrin -] 200 mg PO Q4H PRN tablet 11/02/17 Vitamins (Sjr) - 1 tab PO DAILY #30 tablet 11/02/17 Oxycodone HCl/Acetaminophen [Percocet 5/325 -] 1 tab PO Q6H #40 tab MDD 5 Physical Exam - Maternity Vital Signs: Vital Signs Temperature 98.0 F 05/07/19 05:55 Pulse Rate 84 05/07/19 05:55 Respiratory Rate 18 05/07/19 05:55 Blood Pressure 114/66 05/07/19 05:55 O2 Sat by Pulse Oximetry (%) Selected Entries 05/07/19 05:55 Weight 140 lb Constitutional: Yes: Well Nourished, No Distress, Calm Eyes: Yes: WNL HENT: Yes: WNL Neck: Yes: WNL Cardiovascular: Yes: WNL Lungs: Clear to auscultation Breast(s): Yes: WNL - Abdominal Exam/OB Fundal Height: 40 Number of Fetuses: Single Presentation: Breech Contractions: Yes Regularity: Irregular Intensity: Unaware Monitor Mode: External Heart Rate (range): 140 Category: I Accelerations: Uniform - Vaginal Exam/OB Vaginal Bleediing: No Dilatation (cm): close Effacement (%): unefface Presentation: Single Footling Breech Station: -3 - Physical Exam Musculoskeletal: Yes: WNL Extremities: Yes: WNL. No: Calf Tenderness Edema: LLE: Trace, RLE: Trace Integumentary: Yes: WNL Deep Tendon Reflex Grade: Normal +2 ...Motor Strength: WNL Psychiatric: Yes: WNL, Alert, Oriented - Labs Lab Results: Laboratory Tests 10/15/17 05/05/19 05/05/19 04:45 14:48 14:48 WBC 5.9 Hgb 13.1 Hct 37.3 D Plt Count 273 D Absolute Neuts (auto) 4.6 Neutrophils % 76.8 D Lymphocytes % 16.4 D Monocytes % 6.1 PT with INR INR Sodium Potassium Chloride Carbon Dioxide BUN Creatinine Random Glucose Uric Acid 3.9 Calcium Total Bilirubin GGT 25 AST ALT Total Protein Urine Protein Negative Urine Ketones Negative Ur Leukocyte Esterase 2+ H Urine WBC (Auto) 47 Urine RBC (Auto) 2 Urine Bacteria (Auto) 524.8 RPR Titer 05/05/19 05/05/19 05/05/19 14:48 14:48 14:48 WBC Hgb Hct Plt Count Absolute Neuts (auto) Neutrophils % Lymphocytes % Monocytes % PT with INR 10.80 INR 0.92 Sodium 137 Potassium 3.7 Chloride 104 Carbon Dioxide 24 BUN 6.6 L Creatinine 0.4 L Random Glucose 76 Uric Acid Calcium 8.8 Total Bilirubin 0.4 GGT AST 24 ALT 31 Total Protein 6.7 Urine Protein Urine Ketones Ur Leukocyte Esterase Urine WBC (Auto) Urine RBC (Auto) Urine Bacteria (Auto) RPR Titer Nonreactive Hemorrhage Risk Assessment - Risk Factors Medium Risk Factors: Yes: None High Risk Factors: Yes: None Risk Score: 1 Risk Level: Medium Risk Problem List - Problems (1) 39 weeks gestation of Code(s): Z3A.39 - 39 WEEKS GESTATION OF (2) Single footling breech presentation Code(s): O32.8XX0 - MATERNAL CARE FOR OTH MALPRESENTATION OF FETUS, UNSP Qualifiers: Fetus number: single or unspecified fetus Qualified Code(s): O32.8XX0 - Maternal care for other malpresentation of fetus, not applicable or unspecified Assessment/Plan 28 yrs , ectopic -1 , 39 weeks, Breech presentation , not in labor, gbs neg , admitted for primary c/section ( LFTC/Section ) r/b/a explained
[2019-05-07] MEDS ORDERED: ePHEDrine SULFATE 50 MG/1 ML AMPULE ONE (08:32)
[2019-05-07] MEDS ORDERED: OXYTOCIN 10 UNITS/ML VIAL ONE ×2 (08:46→08:47)
[2019-05-07] MEDS ORDERED: ONDANSETRON 4 MG/2 ML VIAL IVPUSH PRN (09:01)
[2019-05-07] MEDS ORDERED: morphine SULFATE/PF 0.5 MG/ML (2cc Syringe - QUVA) EP ONE (09:02)
[2019-05-07] MEDS ORDERED: IBUPROFEN 600 MG TABLET (FP) PO PRN (09:02)
[2019-05-07] MEDS ORDERED: LACTATED RINGERS SOLUTION 1,000 ML IV SCH (09:15)
[2019-05-07] MEDS ORDERED: METHYLERGONOVINE MALEATE 0.2 MG/1 ML AMP IM PRN (09:43)
[2019-05-07] MEDS ORDERED: SENNOSIDES/DOCUSATE COMBO (SENNA PLUS) TABLET (UD) PO PRN (09:43)
[2019-05-07] MEDS ORDERED: OXYTOCIN 20 UNITS in 0.9% NS 20 UNIT/1,000 ML INFUS.BAG IV SCH (09:45)
--- NOTE | 2019-05-07 09:59 | PN ---
Delivery - Delivery Vaginal Delivery: No Problems Section: Primary, Low Flap Transverse (Indication : 39.2 weeks , footling breech) Type of Anesthesia: Spinal EBL (cc): 800 (sigala output 450 ml, dar color ) Delivery, Single - Stages of Labor Date of Delivery: 05/07/19 Time of Delivery: 08:43 Time Placenta Delivered: 08:45 Placenta: Yes: Manual Removal, Uterine Exploration - Condition of Banking Services Advisor/Quality Assurance Intern Present: Yes Name: Mar Garcia Gender: Male Weight: 7 lb 6 oz Position: SP (single footling breech) Total Hours ROM (Hrs/Mins): 3 min - 1 Minute Total Score: 9 5 Minutes Total Score: 9 - [place] Feeding Plan Initial Plan: Elected not to breastfeed exclusively throughout hospitalization Remarks - Remarks Remarks: 28 yrs , ectopic -1 , 39.2 weeks , iup, breech presentation , gbs neg pnc at 2, [facility] intraop course uneventful iv ancef 2 gm given prior to incision . v/s stable
--- NOTE | 2019-05-07 10:05 | OP ---
Operative Note - Note: Operative Date: 05/14/19 Pre-Operative Diagnosis: 39 .2 weeks , footling breech presentation Operation: Primary LFTC/Section Findings: Baby Boy, TOB: 8.43 AM, 9/9, Wt 7'6" , Breech, single footling . Anesthesiologist : Dr Garcia both tubes & ovaries normal Surgeon: Stephie Patel Staking Press Operator: aMksim Raza Anesthesiologist/MULTISENSOR INTELLIGENCE OFFICER: Loren Mascorro Anesthesia: Spinal Specimens Removed: cord segment for cord gas. cord blood. placenta Estimated Blood Loss (mls): 800 Drains, Volume Out (mls): 450 (dar color, sigala out put ) Fluid Volume Replaced (mls): 1,300 (2gm iv ancef ) Operative Report Dictated: Yes
[2019-05-07] MEDS ORDERED: IBUPROFEN 800 MG/8 ML IJ IVPB ONE (10:43)
--- NOTE | 2019-05-07 10:45 | OP ---
DATE OF OPERATION: 05/07/2019 PREOPERATIVE DIAGNOSIS: A 39.2 week, footling-breech presentation. POSTOPERATIVE DIAGNOSIS: A 39.2 week, footling-breech presentation. OPERATION: Primary low-flap transverse section. SURGEON: Stephie Patel MD EATING DISORDER PSYCHOLOGIST: MAGGIE Giron ANESTHESIOLOGIST: NAHEED Mcclendon BOOM PUMP OPERATOR: Ishmael Garcia DO ANESTHESIA: Spinal. FINDINGS: This is a 28-year-old, 3, para 1-0-0-1, history of ectopic once in the past, medically treated. She is 39.2 weeks, has a diagnosed breech presentation, is not in labor. She is taken for the . PROCEDURE: Patient was taken to the operating room table, and abdomen was shaved, prepped. Leyva catheter was placed. Spinal anesthesia was given. Patient was in supine position. The abdomen was painted and draped in the usual manner. Then, Pfannenstiel incision was made through the skin, subcutaneous tissue. Anterior rectus sheath was incised transversely. Bleeding points were clamped and cauterized. Rectus muscle was from the rectus sheath. Parietal peritoneum was opened vertically. Lower flap bladder peritoneum was identified. It was incised transversely. Lower uterine segment was incised transversely, and amniotic sac was punctured. The footling breech was brought down, and another foot was higher up. Then, the knee was bent, and the foot was brought down and the body, then the shoulders, and lastly, the head was delivered, baby boy. The time of was 8:43 a.m. Immediate suction was done. Cord was clamped, cut, and the baby was handed over to the lap hand tool. Apgars were 9 and 9, and baby's weight was 7 pounds 6 ounces. Cord segment was collected for the cord blood gas, and the cord blood was collected. Then, the placenta was removed completely with the membranes. Uterine cavity was cleaned. Then, the uterine incision was closed in 2 layers. First layer was a continuous locking with a Biosyn 0 suture. Second layer was a continuous, intermittently locking with a Biosyn 0 suture. Hemostasis was checked, and then, interrupted sutures were taken in the bladder peritoneum with a Biosyn 0 suture. Both tubes and ovaries were normal. Irrigation was done. Then, the closure of the abdomen was done. The sponge, instrument, needle count was correct. The parietal peritoneum was closed with Vicryl 0 continuous sutures, and then, the muscles were approximated together with interrupted sutures. Then, bleeding on either rectus sheath was checked. Anterior rectus sheath was closed with a Vicryl 0 suture. Continuous suture was taken, and then, hemostasis was checked and interrupted sutures were taken in the subcutaneous tissue with Vicryl 0 suture. Skin was approximated with chandana. Patient tolerated procedure well. Pressure dressing was given, and blood clots were removed from the vagina. She was transferred to the recovery room in stable condition. Estimated blood loss was 800 mL. Urine output intraoperative was 450 mL. It was dar color. She received 2 g of IV Ancef prior to the incision. Total IV infusion was 1300 mL. Lashawn NGUYỄN/[id number]
[2019-05-07] MEDS: IBUPROFEN 800 MG/8 ML IJ IVPB PRN ×2 (10:50→19:34)
[2019-05-07] MEDS: CEFAZOLIN 1 GM/D5W 1 GM/50 ML BAG IVPB SCH ×2 (16:37→23:40)
[2019-05-08] MEDS: IBUPROFEN 800 MG/8 ML IJ IVPB PRN (05:09)
--- NOTE | 2019-05-08 06:29 | PN ---
Progress Note (short form) - Note Progress Note: pod 1 s/p c/s , doing well, no excess vaginal bleeding Last Vital Signs Temp Pulse Resp BP Pulse Ox 98.6 F 74 20 112/62 99 05/08/19 05:17 05/08/19 05:17 05/08/19 05:42 05/08/19 05:17 05/07/19 10:15 abdomen soft, no distension, no cva incision dry, clean no calf tenderness lochia mild plan ambulate cbc advance diet pain management
[2019-05-08 08:34] LABS: BASO % 0.2 % (0-2.0); EOS % 0.8 % (0-4.5); HEMATOCRIT 37.7 % (32.4-45.2); HEMOGLOBIN 12.8 GM/dL (10.7-15.3); LYMPH % 12.3 % (8-40); MCH 29.7 pg (25.7-33.7); MCHC 33.9 g/dl (32.0-36.0); MEAN CELL VOLUME 87.4 fl (80-96); MEAN PLT VOLUME 7.6 fl (7.5-11.1); MONO % 5.1 % (3.8-10.2); NEUT % 81.6 % (42.8-82.8); PLATELET COUNT 261 K/MM3 (134-434); RBC 4.31 M/mm3 (3.60-5.2); RDW 13.7 % (11.6-15.6); WHITE BLOOD COUNT 9.7 K/mm3 (4.0-10.0)
[2019-05-08] MEDS: CEFAZOLIN 1 GM/D5W 1 GM/50 ML BAG IVPB SCH (08:54)
--- NOTE | 2019-05-08 08:57 | PN ---
Progress Note (short form) - Note Progress Note: POD1 s/p spinal for csection. Pt's pain is well controlled today, was able to ambulate without issue. No PARRISH, no back pain, VSS, no anesthetic issues/ complications noted.
[2019-05-08] MEDS ORDERED: BISACODYL 10 MG SUPP.RECT RC PRN (09:43)
[2019-05-08] MEDS: oxyCODONE HCL 5 MG TABLET PO PRN ×3 (10:19→21:22)
[2019-05-08] MEDS: PRENATAL VITAMINS W/ FOLIC ACID TABLET (FP) PO SCH (10:19)
[2019-05-08] MEDS: ACETAMINOPHEN 325 MG TABLET (FP) PO PRN ×3 (10:21→21:22)
[2019-05-08] MEDS: SIMETHICONE 80 MG TAB.CHEW (FP) PO PRN ×3 (10:22→21:22)
--- NOTE | 2019-05-08 13:16 | DS ---
Physical Exam-SALES ENABLEMENT LEAD Vital Signs: Vital Signs Temperature 97.1 F L 05/08/19 09:29 Pulse Rate 68 05/08/19 09:29 Respiratory Rate 20 05/08/19 09:29 Blood Pressure 98/54 L 05/08/19 09:29 O2 Sat by Pulse Oximetry (%) 99 05/07/19 10:15 Selected Entries 05/10/19 10:00 Temperature 98.7 F Pulse Rate 79 Blood Pressure 109/73 Constitutional: Yes: Well Nourished, Other (pain score 5/10) Eyes: Yes: WNL HENT: Yes: WNL Neck: Yes: WNL Cardiovascular: Yes: WNL Respiratory: Yes: WNL Gastrointestinal: Yes: WNL, Normal Bowel Sounds, Soft. No: Distention ...Rectal Exam: Yes: WNL ....Post : Yes: Uterus firm, Moderate lochia rubra (perineum intact) Breast(s): Yes: WNL (breast & bottle feeding, not engorged) Musculoskeletal: Yes: WNL Extremities: Yes: WNL. No: Calf Tenderness Edema: LLE: 1+, RLE: 1+ Wound/Incision: Yes: Clean/Dry, Well Approximated, [place] Intact, Open to air, Other (will rtc for chandana removal). No: Draining, Reddened, Bleeding, Excoriated Neurological: Yes: WNL ...Motor Strength: WNL Psychiatric: Yes: WNL, Alert, Oriented Labs: CBC, BMP 05/08/19 07:35 Laboratory Tests 05/10/19 07:56 WBC 5.5 RBC 3.83 Hgb 11.5 Hct 33.6 Plt Count 278 Delivery - Delivery Vaginal Delivery: No Problems Section: Primary, Low Flap Transverse (Indication : 39.2 weeks , footling breech) Type of Anesthesia: Spinal Episiotomy/Laceration: None EBL (cc): 800 Delivery, Single - Stages of Labor Date of Delivery: 05/07/19 Time of Delivery: 08:43 Time Placenta Delivered: 08:45 Placenta: Yes: Manual Removal, Uterine Exploration - Condition 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 v/s stable post op course uneventful pp instructions given will rtc for chandana removal pt discharged on 05/10/19 by Cecilia Dean Discharge Summary Problems reviewed: Yes Reason For Visit: SCEDULED Current Active Problems Delivery by (planned) section occurring after 37 completed weeks of gestation but before 39 completed weeks gestation due to (spontaneous) onset of labor, with mention of complication (Acute) Single footling breech presentation (Acute) Procedures: Principal: Primary LFTC/section Hospital Course: uneventful Health Concerns: none Plan of Treatment: ct pnv & pain meds Goals: maternal & infant well being Condition: Stable - Instructions Diet, Activity, Other Instructions: Post Instructions DIET: Continue good diet high in protein, calcium, and iron rich foods. Drink at least eight (8) glasses of water daily in addition to other fluids. ___ Regular diet MEDICATIONS: Continue vitamins and iron as previously directed. Motrin and Tylenol may be taken for minor discomfort. ACTIVITY: Mild to moderate exercise may be started in two (2) weeks. Take frequent rest periods. Resume normal activity after six (6) week check up. WOUND CARE OF OPERATIVE SITE: Continue use of perineal bottle until vaginal discharge stops. Keep area clean. Shower daily. Keep abdominal wound dry. Report any drainage or redness to physician. Tub baths, tampons and douches are not permitted for [address] Breast feeding & or Bottle feeding BREAST CARE: (For those that are not ): If engorgement occurs: Wear tight fitting bra. Take Tylenol or Motrin for pain. Apply cold packs (ice in bags to each breast ) FAMILY PLANNING: There are many control alternatives to pursue and they should be discussed at your first office visit. You may resume sexual activity after your six (6) week check up. (Remember, breast feeding is not a contraceptive) NEXT PHYSICIAN APPOINTMENT: Be certain to call for a one (1) week appointment, unless otherwise directed. rtc Saturday for chandana removal , at [address] [place] [address] . [phone] Call Clinic or got to Emergency Dept if you have any of the following: Heavy vaginal bleeding Painful urination Leg pain Unusual odor noted to vaginal bleeding High fever Red streaking noted on breast Referrals: Stephie Patel MD [Staff Physician] - Disposition: HOME - Home Medications Comprehensive Discharge Medication List: Ambulatory Orders Ibuprofen [Motrin -] 200 mg PO Q4H PRN tablet 11/02/17 Vitamins (Sjr) - 1 tab PO DAILY #30 tablet 11/02/17 Acetaminophen [Tylenol .Regular Strength -] 500 mg PO Q4H PRN #30 tablet Ferrous Sulfate [Feosol] 325 mg PO BID tab 05/08/19 Ibuprofen [Motrin -] 600 mg PO Q4H PRN tablet 05/08/19 Ibuprofen [Motrin -] 600 mg PO Q4H PRN #30 tablet 05/08/19 Vitamins (Sjr) - 1 tab PO DAILY tablet 05/08/19 Prescription Drug Monitoring Program (I-STOP) results: I-STOP reviewed and no issues identified (pt will rtc for chandana removal)
[2019-05-08] MEDS: FERROUS SO4 325 MG TABLET (FP) PO SCH (21:22)
[2019-05-09] MEDS: oxyCODONE HCL 5 MG TABLET PO PRN ×4 (02:55→21:21)
[2019-05-09] MEDS: SIMETHICONE 80 MG TAB.CHEW (FP) PO PRN ×3 (02:55→21:21)
[2019-05-09] MEDS: IBUPROFEN 600 MG TABLET (FP) PO PRN ×4 (02:56→21:22)
[2019-05-09] MEDS: PRENATAL VITAMINS W/ FOLIC ACID TABLET (FP) PO SCH (09:42)
[2019-05-09] MEDS: FERROUS SO4 325 MG TABLET (FP) PO SCH ×2 (09:42→21:17)
[2019-05-09 19:46] VITALS: PULSE 79
[2019-05-10] MEDS: SIMETHICONE 80 MG TAB.CHEW (FP) PO PRN ×2 (02:39→09:32)
[2019-05-10] MEDS: IBUPROFEN 600 MG TABLET (FP) PO PRN ×2 (02:39→09:33)
[2019-05-10] MEDS: oxyCODONE HCL 5 MG TABLET PO PRN (02:40)
[2019-05-10] MEDS: ACETAMINOPHEN 325 MG TABLET (FP) PO PRN ×2 (02:40→09:32)
[2019-05-10 08:26] LABS: BASO % 0.4 % (0-2.0); HEMATOCRIT 33.6 % (32.4-45.2); HEMOGLOBIN 11.5 GM/dL (10.7-15.3); MCHC 34.3 g/dl (32.0-36.0); MEAN CELL VOLUME 87.6 fl (80-96); MEAN PLT VOLUME 7.3 fl (7.5-11.1); MONO % 6.3 % (3.8-10.2); NEUT % 66.3 % (42.8-82.8); PLATELET COUNT 278 K/MM3 (134-434); RBC 3.83 M/mm3 (3.60-5.2); RDW 13.9 % (11.6-15.6); WHITE BLOOD COUNT 5.5 K/mm3 (4.0-10.0)
--- NOTE | 2019-05-10 10:41 | PN ---
Post Progress Note - Subjective Subjective: Ambulating, tolerating PO, lochia decreased, voiding Post Day: 3 Type of Delivery: Primary C/S Vital Signs: Vital Signs Temperature 98.1 F 05/09/19 19:45 Pulse Rate 79 05/09/19 19:45 Respiratory Rate 20 05/09/19 19:45 Blood Pressure 111/67 05/09/19 19:45 O2 Sat by Pulse Oximetry (%) 99 05/07/19 10:15 Breast Exam: Yes: Other (deferred) Uterus: Yes: Fundus Firm Incision: Yes: Martha intact Abdomen/GI: Yes: Abdomen soft Lochia, amount: Moderate Extremities: Yes: Calves non-tender Activity: Ambulating - Labs Labs: CBC WBC 5.5 K/mm3 (4.0-10.0) 05/10/19 07:56 RBC 3.83 M/mm3 (3.60-5.2) 05/10/19 07:56 Hgb 11.5 GM/dL (10.7-15.3) 05/10/19 07:56 Hct 33.6 % (32.4-45.2) 05/10/19 07:56 MCV 87.6 fl (80-96) 05/10/19 07:56 MCH 30.0 pg (25.7-33.7) 05/10/19 07:56 MCHC 34.3 g/dl (32.0-36.0) 05/10/19 07:56 RDW 13.9 % (11.6-15.6) 05/10/19 07:56 Plt Count 278 K/MM3 (134-434) 05/10/19 07:56 MPV 7.3 fl (7.5-11.1) L 05/10/19 07:56 Absolute Neuts (auto) 3.6 K/mm3 (1.5-8.0) 05/10/19 07:56 Neutrophils % 66.3 % (42.8-82.8) 05/10/19 07:56 Lymphocytes % 25.0 % (8-40) D 05/10/19 07:56 Monocytes % 6.3 % (3.8-10.2) 05/10/19 07:56 Eosinophils % 2.0 % (0-4.5) D 05/10/19 07:56 Basophils % 0.4 % (0-2.0) 05/10/19 07:56 Nucleated RBC % 0 % (0-0) 05/10/19 07:56 Assessment/Plan POD# 3 in stable condition. PP/post-op precautions discussed. -D/C home f/U for incision check at [facility]
[2019-05-10 10:59] VITALS: BP 109/73; TEMP 98.7
[2019-05-10] MEDS: FERROUS SO4 325 MG TABLET (FP) PO SCH (11:29)
[2019-05-10] MEDS: PRENATAL VITAMINS W/ FOLIC ACID TABLET (FP) PO SCH (11:29)
--- NOTE | 2019-05-11 17:03 | PATH ---
Surgical Pathology Report Patient Name: FIDEL JAMES Med. Rec. 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 Specimen(s) Received PLACENTA Clinical History , 39.2 weeks, breech presentation Final Diagnosis PLACENTA, SECTION: 620 G THIRD TRIMESTER PLACENTA WITH TRIVASCULAR UMBILICAL CORD AND UNREMARKABLE PLACENTAL MEMBRANES. Electronically Signed Meri Salinas M.D. Gross Description The specimen is received fresh labeled placenta and is a 620 gram, 19 x 14 x 1.5 cm. placenta with attached membranes and umbilical cord. The attached membranes are burgess, opaque and insert marginally. The umbilical cord measures 14 cm. in length and averages 1.5 cm. in diameter. The cord inserts eccentrically, 4.5 cm. to the nearest margin. No true knots or strictures are identified. Cut surface of the umbilical cord reveals 3 vessels. The surface is carmona-blue with minimal fibrin deposition and appropriate caliber vessels. The maternal surface is red-brown with focal defects. Sectioning reveals red-brown, spongy parenchyma. No lesions are identified. Street Supervisor sections are submitted in three cassettes as follows: 1- membrane rolls and umbilical cord; 2-3- full thickness sections of placenta. MLSZ/05/08/2019 sanml/05/08/2019
== END 2019-05-10 11:15 | disposition home or self-care (01) | DRG 540 ==
LOC: JLDR 05:55 → J3W 11:23
PROVIDERS: ADMIT Obstetrics & Gynecology; ATTEND Obstetrics & Gynecology
PROC: 10D00Z1 Extraction of Products of Conception, Low, Open Approach (ICD-10-PCS; principal; 2019-05-07)
DX: O32.8XX0 Maternal care for other malpresentation of fetus, not applicable or unspecified (principal); Z3A.39 39 weeks gestation of pregnancy; Z37.0 Single live birth
CPT/HCPCS: 36415; 36600; 82803; 85025; 88307-TC

== ENCOUNTER 2019-06-30 23:23 | Emergency (ER) | payer OTHER ==
[2019-06-30 23:40] VITALS: TEMP 97.7; BMI 28.3
[2019-07-01 00:50] LABS: PH,URINE 5.5 (5.0-8.0); URINE APPEARANCE CLEAR; URINE BILIRUBIN NEGATIVE (NEGATIVE); URINE COLOR YELLOW; URINE GLUCOSE (UA) NEGATIVE (NEGATIVE); URINE KETONE NEGATIVE (NEGATIVE); URINE LEUK ESTERASE NEGATIVE (NEGATIVE); URINE NITRITE NEGATIVE (NEGATIVE); URINE PROTEIN NEGATIVE (NEGATIVE); URINE UROBILINOGEN 0.2 mg/dL (0.2-1.0)
--- NOTE | 2019-07-01 00:58 | PDOC ---
History of Present Illness - General Chief Complaint: Pain Stated Complaint: STOMACH PAIN Time Seen by Provider: 07/01/19 00:33 History Source: Patient Exam Limitations: Language Barrier - History of Present Illness Initial Comments: History limited bc patient speaks Surinamese - [employer] search marketing analyst [id number] used for translation Rylee is a Surinamese speaking 29 yo F w a pmh of cholecystitis/cholecystectomy, multiple C-sections, and ectopic who presents to the [facility] with epigastric abdominal pain that radiates to her back. She had two molars taken out today which caused her to have a significant amount of pain. One of her molars was infected so she is taking amoxicillin for the infection. Her molars were hurting so she took tylenol but this did not bring her enough pain relief so she then took ibuprofen 3 hours later. After she took ibuprofen her epigastric region began to hurt very badly. The pain began it radiate to her back, then it continued and she started sweating. The pain right now is a 6/10 but earlier today it was an 9/10. The pain felt like a burning/pressure like feeling and was associated with nausea but no emesis. She denies fevers, dysuria, frequency, urgency, headache, blurry vision, chest pain, SOB, difficulty breathing, numbness, tingling, or chills. LMP: July PCP: None LEATHER LEVELER: Dr. Mccormack PSH: Cholecystectomy, Social Hx: Denies smoking, drinking, or other substance usage Allergies: NKA, NKDA Past History - Past Medical History Allergies/Adverse Reactions: Allergies Allergy/AdvReac Type Severity Reaction Status Date / Time No Known Allergies Allergy Verified 05/07/19 06:40 Home Medications: Ambulatory Orders Ibuprofen [Motrin -] 200 mg PO Q4H PRN tablet 11/02/17 Vitamins (Sjr) - 1 tab PO DAILY #30 tablet 11/02/17 Acetaminophen [Tylenol .Regular Strength -] 500 mg PO Q4H PRN #30 tablet Ferrous Sulfate [Feosol] 325 mg PO BID tab 05/08/19 Ibuprofen [Motrin -] 600 mg PO Q4H PRN tablet 05/08/19 Ibuprofen [Motrin -] 600 mg PO Q4H PRN #30 tablet 05/08/19 Vitamins (Sjr) - 1 tab PO DAILY tablet 05/08/19 Asthma: No Cancer: No Cardiac Disorders: No COPD: No Diabetes: No HTN: No Seizures: No Thyroid Disease: No - Reproductive History (#): 2 Para: 1 - Immunization History Immunization Up to Date: Yes - Psycho Social/Smoking Cessation Hx Smoking History: Never smoked Have you smoked in the past 12 months: No Hx Alcohol Use: No Drug/Substance Use Hx: No Substance Use Type: None Hx Substance Use Treatment: No Review of Systems - Review of Systems Able to Perform ROS?: Yes Comments:: CONSTITUTIONAL: Absent: fever, no chills, no fatigue EYES: Absent: visual changes ENT: Present: Tooth pain Absent: ear pain, no sore throat CARDIOVASCULAR: Absent: chest pain, no palpitations RESPIRATORY: Absent: cough, no SOB GI: Present: Abdominal pain, nausea Absent: no vomiting, no constipation, no diarrhea GENITOURINARY: Absent: dysuria, no frequency, no hematuria MUSKULOSKELETAL: Present: Back pain Absent: no arthralgia, no myalgia SKIN: Absent: rash NEURO: Absent: headache *Physical Exam - Vital Signs Last Vital Signs Temp Pulse Resp BP Pulse Ox 97.7 F 67 20 95/48 L 100 06/30/19 23:36 06/30/19 23:36 06/30/19 23:36 06/30/19 23:36 06/30/19 23:36 - Physical Exam GENERAL: Well-appearing, well-nourished. Mild distress. HEENT: The right mandibular teeth are swollen and infected. Normocephalic, atraumatic. PERRL, EOM intact. CARDIOVASCULAR: Normal S1, S2. Regular rate and rhythm. PULMONARY: No evidence of respiratory distress. Lungs clear to auscultation bilaterally. No wheezing, rales or rhonchi. ABDOMEN: There is epigastric TTP. Abdomen is soft, non-distened, no guarding or rebound. EXTREMITIES: Normal ROM in all four extremities. No gross deformities. SKIN: Warm, dry. No rash NEUROLOGICAL: No focal neurological deficits. ED Treatment Course - LABORATORY CBC & Chemistry Diagram: 07/01/19 01:24 07/01/19 01:24 - ADDITIONAL ORDERS Additional order review: Laboratory Results 07/01/19 00:14 Urine Color Yellow Urine Appearance Clear Urine pH 5.5 Ur Specific [place] 1.015 Urine Protein Negative Urine Glucose (UA) Negative Urine Ketones Negative Urine Blood Negative Urine Nitrite Negative Urine Bilirubin Negative Urine Urobilinogen 0.2 Ur Leukocyte Esterase Negative Medical Decision Making - Medical Decision Making History limited patient speaks Surinamese - [employer] search marketing analyst [phone] used for translation Rylee is a Surinamese speaking 29 yo F w a pmh of cholecystitis/cholecystectomy, multiple C-sections, and ectopic who presents to the [facility] with epigastric abdominal pain that radiates to her back. She had two molars taken out today which caused her to have a significant amount of pain. One of her molars was infected so she is taking amoxicillin for the infection. Her molars were hurting so she took tylenol but this did not bring her enough pain relief so she then took ibuprofen 3 hours later. After she took ibuprofen her epigastric region began to hurt very badly. The pain began it radiate to her back, then it continued and she started sweating. The pain right now is a 6/10 but earlier today it was an 9/10. The pain felt like a burning/pressure like feeling and was associated with nausea but no emesis. She denies fevers, dysuria, frequency, urgency, headache, blurry vision, chest pain, SOB, difficulty breathing, numbness, tingling, or chills. Vital Signs Temp Pulse Resp BP Pulse Ox 97.7 F 67 20 95/48 L 100 06/30/19 23:36 06/30/19 23:36 06/30/19 23:36 06/30/19 23:36 06/30/19 23:36 DDx IBNLT: GERD, NSAID induced gastritis, pancreatitis, PUD, electrolyte/ metabolic disturbance, - IUP vs ectopic Plan: Labs, Urine, EKG, IV hydration, GI cocktail, re-assess. Urine: HCG negative, no signs of infection. Labs: Elevated Liver enziymes likely from recent amoxicillin and tylenol ingestion for her infection - Will obtain acetaminophen level EKG: QTc 446, NS rate of 68, narrow complexes, normal axis, no hypertrophy, no ST elevations or depressions, Re-assessment: Patient feels well and no longer has any abdominal pain Disposition: Home with PCP and GI FU Discharge - Discharge Information Problems reviewed: Yes Clinical Impression/Diagnosis: NSAID induced gastritis, Elevated LFTs Condition: Improved Disposition: HOME - Admission No - Follow up/Referral Referrals: Cadence Iqbal MD [Staff Physician] - Swapnil Ricardo MD [Staff Physician] - Dami Shaffer DO [Staff Physician] - - Patient Discharge Instructions Patient Printed Discharge Instructions: Gastritis (Alternative Therapy), DI for Gastritis Additional Instructions: You came into the ER with abdominal pain after you took ibuprofen. We gave you pepcis and maalox and you felt much better. We looked at your labs and noticed your liver function tests are elevated. Please schedule a follow up appointment with your primary care doctor and the stomach doctor we are referring you to, to have this monitored and taken care of. Come back to the ER with any new or worsening concerns. Print Language: ITALIAN - Post Discharge Activity
[2019-07-01] MEDS ORDERED: FAMOTIDINE 20 MG/50 ML IVPB 20 MG/50 ML MG IVPB ONE ×2 (00:59→01:49)
[2019-07-01] MEDS ORDERED: ONDANSETRON 4 MG/2 ML VIAL IVPUSH ONE (00:59)
[2019-07-01] MEDS ORDERED: MAG HYDROX/AL HYDROX/SIMETH -MYLANTA- ORAL SUSPENSION PO ONE (00:59)
[2019-07-01] MEDS ORDERED: ACETAMINOPHEN 1000 MG/100 ML VIAL (NON FORMULARY) IVPB ONE (00:59)
[2019-07-01] MEDS ORDERED: SODIUM CHLORIDE 1,000 ML IV STA (00:59)
--- NOTE | 2019-07-01 01:14 | PDOC ---
Documentation entered by Davina Yoder SCRIBE, acting as scribe for Aury Wilburn MD. Aury Wilburn MD: This documentation has been prepared by the Paresh escobar Xhesika, SCRIBE, under my direction and personally reviewed by me in its entirety. I confirm that the documentation accurately reflects all work, treatment, procedures, and medical decision making performed by me. Attending Attestation - Resident Resident Name: Boyd Farley - ED Attending Attestation I have performed the following: I have examined & evaluated the patient, The case was reviewed & discussed with the resident, I agree w/resident's findings & plan, Exceptions are as noted - HPI HPI: 07/01/19 00:58 29 yo female p/w abdominal pain that started After using Motrin for her dental extraction pain she also started amoxicillin at the same time - Physicial Exam PE: 07/01/19 01:09 petite 29 yo female in no acute distress head ncat Oral exam rt mandibular socket ,no active bleeding,uvula midline,no edema abd no rebound,no guarding,soft neuro axox3,ambulatory - Medical Decision Making 07/01/19 01:12 pt has been taking amoxicillin and motrin together after having her molar extracted benign abd exam negative test imp dyspepsia due to nsaids and ABX pt encouraged to take with food 07/01/19 01:14
[2019-07-01 01:34] LABS: BASO % 0.2 % (0-2.0); EOS % 0.4 % (0-4.5); HEMATOCRIT 36.6 % (32.4-45.2); HEMOGLOBIN 12.6 GM/dL (10.7-15.3); LYMPH % 10.3 % (8-40); MCH 29.2 pg (25.7-33.7); MCHC 34.5 g/dl (32.0-36.0); MEAN CELL VOLUME 84.8 fl (80-96); MEAN PLT VOLUME 7.3 fl (7.5-11.1); MONO % 7.9 % (3.8-10.2); NEUT % 81.2 % (42.8-82.8); PLATELET COUNT 296 K/MM3 (134-434); RBC 4.31 M/mm3 (3.60-5.2); RDW 12.6 % (11.6-15.6); WHITE BLOOD COUNT 8.8 K/mm3 (4.0-10.0)
[2019-07-01] MEDS ORDERED: ONDANSETRON 4 MG/2 ML VIAL ONE (01:48)
[2019-07-01] MEDS ORDERED: ACETAMINOPHEN INJECTION 100 ML IVPB ONE (01:48)
[2019-07-01 01:50] LABS: MAGNESIUM 2.5 mg/dL (1.8-2.4)
[2019-07-01 01:55] LABS: ALBUMIN 4.1 g/dl (3.4-5.0); BLOOD UREA NITROGEN 10.1 mg/dL (7-18); CALCIUM 8.9 mg/dL (8.5-10.1); CREATININE 0.5 mg/dL (0.55-1.3); POTASSIUM 3.6 mmol/L (3.5-5.1); TOT PROT 7.7 g/dl (6.4-8.2)
[2019-07-01 01:56] LABS: PHOSPHOROUS 3.1 mg/dL (2.5-4.9)
[2019-07-01] MEDS ORDERED: MAG HYDROX/AL HYDROX/SIMETH 30 ML UNIT-DOSE CUP ONE (03:16)
[2019-07-01 05:02] VITALS: BP 107/72; PULSE 60
--- NOTE | 2019-07-01 10:40 | EKG ---
Test Reason : Blood Pressure : / mmHG Vent. Rate : 068 BPM Atrial Rate : 068 BPM P-R Int : 162 ms QRS Dur : 076 ms QT Int : 420 ms P-R-T Axes : 045 049 026 degrees QTc Int : 446 ms NORMAL SINUS RHYTHM CANNOT RULE OUT ANTERIOR INFARCT , AGE UNDETERMINED ABNORMAL ECG WHEN COMPARED WITH ECG OF 17-JAN-2018 00:49, NO SIGNIFICANT CHANGE WAS FOUND Confirmed by ABDIAZIZ MCCRACKEN, TYLER ([id number]) on 07/01/2019 10:39:48 AM Referred By: Confirmed By:TYLER FREED MD
== END 2019-07-01 03:30 | disposition home or self-care (01) ==
LOC: JER 23:23
PROC: 3E033NZ Introduction of Analgesics, Hypnotics, Sedatives into Peripheral Vein, Percutaneous Approach (ICD-10-PCS; principal; 2019-06-30)
PROC: 3E033GC Introduction of Other Therapeutic Substance into Peripheral Vein, Percutaneous Approach (ICD-10-PCS; 2019-06-30)
DX: R94.5 Abnormal results of liver function studies (principal); K29.60 Other gastritis without bleeding
CPT/HCPCS: 36415; 80053; 80307; 81003; 83690; 83735; 84100; 84484; 84703; 85025; 87086; 87186; 93005; 93010; 96365; 96375; 99283-25; J0131; J7030

== ENCOUNTER 2019-07-26 23:48 | Emergency (ER) | payer OTHER ==
--- NOTE | 2019-07-27 01:28 | PDOC ---
History of Present Illness - General Stated Complaint: VAGIANL Sx Time Seen by Provider: 07/27/19 01:28 - History of Present Illness Initial Comments: 07/27/19 06:52 29 year old woman with a history of recent urinary tract infection 3 weeks and compelted a course of macrobid who presents with lowe abdominal pain ROS GENERAL/CONSTITUTIONAL: No fever or chills. No weakness. HEAD, EYES, EARS, NOSE AND THROAT: No change in vision. No ear pain or discharge. No sore throat. CARDIOVASCULAR: No chest pain or shortness of breath RESPIRATORY: No cough, wheezing, or hemoptysis. GASTROINTESTINAL: No nausea, vomiting, diarrhea or constipation. GENITOURINARY: No dysuria, frequency, or change in urination. MUSCULOSKELETAL: No joint or muscle swelling or pain. No neck or back pain. SKIN: No rash NEUROLOGIC: No headache, vertigo, loss of consciousness, or change in strength/ sensation. PE GENERAL: Awake, alert, and fully oriented, in no acute distress HEAD: No signs of trauma, normocephalic, atraumatic EYES: EOMI, sclera anicteric, conjunctiva clear ENT: oropharynx clear without exudates. Moist mucosa NECK: Normal ROM, supple LUNGS: No distress, speaks full sentences, clear to auscultation bilaterally HEART: Regular rate and rhythm, normal S1 and S2, no murmurs, rubs or gallops, peripheral pulses normal and equal bilaterally. ABDOMEN: Soft, nontender. No guarding, no rebound. No masses EXTREMITIES : Normal inspection, Normal range of motion, no edema. No clubbing or cyanosis. NEUROLOGICAL: Cranial nerves II through XII grossly intact. Normal speech, normal gait, no focal sensorimotor deficits SKIN: Warm, Dry, normal turgor, no rashes or lesions noted PELVIC: closed os, physciological fluid, no adnexal mass, no CMT MDM DDX including but not limited to: W/U: - TX: - Scores: ED Course: Patient stable for discharge. Informed of all lab and imaging results. Given follow up instructions and strict return precautions. Patient expressed understanding and agree to plan.yazmin leos Child Nutrition Director #: Cami Orellana, PGY2 Emergency Medicine 07/27/19 07:10 Past History - Past Medical History Allergies/Adverse Reactions: Allergies Allergy/AdvReac Type Severity Reaction Status Date / Time No Known Allergies Allergy Verified 07/27/19 01:38 Home Medications: Ambulatory Orders Ibuprofen [Motrin -] 200 mg PO Q4H PRN tablet 11/02/17 Vitamins (Sjr) - 1 tab PO DAILY #30 tablet 11/02/17 Acetaminophen [Tylenol .Regular Strength -] 500 mg PO Q4H PRN #30 tablet Ferrous Sulfate [Feosol] 325 mg PO BID tab 05/08/19 Ibuprofen [Motrin -] 600 mg PO Q4H PRN tablet 05/08/19 Ibuprofen [Motrin -] 600 mg PO Q4H PRN #30 tablet 05/08/19 Vitamins (Sjr) - 1 tab PO DAILY tablet 05/08/19 Nitrofurantoin Monohyd/M-Cryst [Macrobid -] 100 mg PO BID #14 capsule 07/04/19 Cephalexin Monohydrate [Keflex -] 500 mg PO BID #7 capsule 07/27/19 Asthma: No Cancer: No Cardiac Disorders: No COPD: No Diabetes: No HTN: No Seizures: No Thyroid Disease: No - Reproductive History (#): 2 Para: 1 - Immunization History Immunization Up to Date: Yes - Psycho Social/Smoking Cessation Hx Smoking History: Never smoked Have you smoked in the past 12 months: No Hx Alcohol Use: No Drug/Substance Use Hx: No Substance Use Type: None Hx Substance Use Treatment: No ED Treatment Course - LABORATORY CBC & Chemistry Diagram: 07/27/19 02:30 07/27/19 02:30 Discharge - Discharge Information Problems reviewed: Yes Clinical Impression/Diagnosis: Urinary tract infection Condition: Fair Disposition: HOME - Admission No - Additional Discharge Information Prescriptions: Cephalexin Monohydrate [Keflex -] 500 mg PO BID #7 capsule - Follow up/Referral Referrals: Radha Poole MD [Primary Care Provider] - - Patient Discharge Instructions Patient Printed Discharge Instructions: DI for Urinary Tract Infection (UTI) Additional Instructions: You were seen in the ED for complaints of lower abdominal pain In the ED you were evaluated with labwork and imaging Your results showed a urinary tract infection There does not appear to be an acute need for immediate hospitalization. You are advised to follow up with your Primary Care Physician within 1 week. You were given a prescription for antibiotics and it should be taken as prescribed Return to the ED immediately if you experience worsening abdominal pain, fevers , nausea, vomiting or any other concerning symptoms. - Post Discharge Activity
[2019-07-27 01:38] VITALS: TEMP 98; BMI 28.6
--- NOTE | 2019-07-27 01:43 | PDOC ---
Attending Attestation - Resident Resident Name: Cami Orellana - ED Attending Attestation I have performed the following: I have examined & evaluated the patient, The case was reviewed & discussed with the resident, I agree w/resident's findings & plan - HPI HPI: 07/27/19 04:36 see resident hpi - Physicial Exam PE: 07/27/19 04:36 agree with resident exam - Medical Decision Making 07/27/19 04:36 29-year-old female approximately 2 months post with dysuria and intermittent abdominal pain Patient is afebrile, no elevated white blood cell count Urine is consistent with a mild urinary tract infection Pelvic exam was unremarkable performed by the emergency department residents Will DC on Keflex with instructions to return if worse
[2019-07-27 02:48] LABS: BASO % 0.7 % (0-2.0); EOS % 3.8 % (0-4.5); HEMOGLOBIN 12.6 GM/dL (10.7-15.3); LYMPH % 28.5 % (8-40); MCH 28.8 pg (25.7-33.7); MCHC 34.1 g/dl (32.0-36.0); MEAN CELL VOLUME 84.7 fl (80-96); MEAN PLT VOLUME 7.9 fl (7.5-11.1); MONO % 8.3 % (3.8-10.2); NEUT % 58.7 % (42.8-82.8); PLATELET COUNT 299 K/MM3 (134-434); RBC 4.37 M/mm3 (3.60-5.2); RDW 12.7 % (11.6-15.6); WHITE BLOOD COUNT 5.4 K/mm3 (4.0-10.0)
[2019-07-27 03:11] LABS: ALBUMIN 3.8 g/dl (3.4-5.0); BILIRUBIN,TOTAL 0.2 mg/dL (0.2-1); BLOOD UREA NITROGEN 13.3 mg/dL (7-18); CREATININE 0.7 mg/dL (0.55-1.3); POTASSIUM 3.9 mmol/L (3.5-5.1); TOT PROT 7.3 g/dl (6.4-8.2)
[2019-07-27 03:17] LABS: EPI CELLS 10.3 /HPF (0-5/HPF); HYALINE CASTS 3 /lpf (0-8); PH,URINE 6.5 (5.0-8.0); URINE APPEARANCE CLOUDY; URINE BACTERIA 274.1 /hpf (NEGATIVE); URINE BILIRUBIN NEGATIVE (NEGATIVE); URINE COLOR YELLOW; URINE GLUCOSE (UA) NEGATIVE (NEGATIVE); URINE KETONE NEGATIVE (NEGATIVE); URINE LEUK ESTERASE 1+ (NEGATIVE); URINE NITRITE NEGATIVE (NEGATIVE); URINE PROTEIN NEGATIVE (NEGATIVE); URINE RBC 0 /hpf (0-4); URINE UROBILINOGEN 0.2 mg/dL (0.2-1.0); URINE WBC 9 /hpf (0-5)
[2019-07-27 03:39] VITALS: BP 135/60; PULSE 76
[2019-07-27] MEDS ORDERED: CEPHALEXIN MONOHYDRATE 500 MG CAPSULE (UD) PO ONE (03:54)
[2019-07-27] MEDS ORDERED: CEPHALEXIN MONOHYDRATE 500 MG CAPSULE (UD) ONE (03:57)
== END 2019-07-27 04:37 | disposition home or self-care (01) ==
LOC: JER 23:48
DX: N39.0 Urinary tract infection, site not specified (principal); Z87.440 Personal history of urinary (tract) infections
CPT/HCPCS: 36415; 80053; 81003; 84703; 85025; 87086; 99283-25

== ENCOUNTER 2019-08-27 18:18 | Emergency (ER) | payer OTHER ==
[2019-08-27 18:54] VITALS: TEMP 98; BMI 27.2
[2019-08-27] MEDS ORDERED: SODIUM CHLORIDE 1,000 ML IV STA (18:54)
[2019-08-27] MEDS ORDERED: ONDANSETRON 4 MG/2 ML VIAL IVPUSH ONE (18:55)
--- NOTE | 2019-08-27 18:55 | PDOC ---
Rapid Medical Evaluation Time Seen by Provider: 08/27/19 18:49 Medical Evaluation: Allergies Allergy/AdvReac Type Severity Reaction Status Date / Time No Known Allergies Allergy Verified 07/27/19 01:38 08/27/19 18:50 CC: Worsening abdominal pain Pt is a a 29 y/o female who presents to the ED with complaint of worsening abdominal pain since taking bactrim for a uti on 08/25/19. Pt states she feels worse. + dysuria and urgency. No hematuria. Brief exam: Flushed cheeks, moderate lower abdominal tenderness to palpation, no significant CVA tenderness b/l Orders: labs, fluids, zofran To ED for further evaluation Discharge Disposition - Diagnosis Dysuria - Referrals - Patient Instructions - Post Discharge Activity
[2019-08-27] MEDS ORDERED: ONDANSETRON 4 MG/2 ML VIAL ONE (20:23)
[2019-08-27 21:04] LABS: BASO % 0.3 % (0-2.0); EOS % 0.8 % (0-4.5); HEMATOCRIT 39.9 % (32.4-45.2); HEMOGLOBIN 13.5 GM/dL (10.7-15.3); LYMPH % 14.8 % (8-40); MCH 27.6 pg (25.7-33.7); MCHC 33.9 g/dl (32.0-36.0); MEAN CELL VOLUME 81.2 fl (80-96); MEAN PLT VOLUME 8.1 fl (7.5-11.1); MONO % 6.8 % (3.8-10.2); NEUT % 77.3 % (42.8-82.8); PLATELET COUNT 317 K/MM3 (134-434); RBC 4.91 M/mm3 (3.60-5.2); RDW 12.6 % (11.6-15.6); WHITE BLOOD COUNT 5.8 K/mm3 (4.0-10.0)
[2019-08-27 21:07] LABS: URINE APPEARANCE CLEAR; URINE BILIRUBIN NEGATIVE (NEGATIVE); URINE COLOR YELLOW; URINE GLUCOSE (UA) NEGATIVE (NEGATIVE); URINE KETONE NEGATIVE (NEGATIVE); URINE LEUK ESTERASE NEGATIVE (NEGATIVE); URINE NITRITE NEGATIVE (NEGATIVE); URINE PROTEIN NEGATIVE (NEGATIVE); URINE UROBILINOGEN 0.2 mg/dL (0.2-1.0)
[2019-08-27 21:34] LABS: ALBUMIN 4.2 g/dl (3.4-5.0); BILIRUBIN,TOTAL 0.8 mg/dL (0.2-1); BLOOD UREA NITROGEN 7.9 mg/dL (7-18); CREATININE 0.6 mg/dL (0.55-1.3); POTASSIUM 4.2 mmol/L (3.5-5.1); TOT PROT 8.2 g/dl (6.4-8.2)
--- NOTE | 2019-08-27 23:04 | PDOC ---
History of Present Illness - General Chief Complaint: Pain, Acute Stated Complaint: ABD PAIN Time Seen by Provider: 08/27/19 18:49 History Source: Patient, Old Records Exam Limitations: No Limitations - History of Present Illness Travel History: No Initial Comments: 08/27/19 22:59 HISTORY OF PRESENT ILLNESS: 29-year-old woman past medical history of cholecystectomy presents emergency department for evaluation of epigastric abdominal pain radiating to her back which is been intermittent over the past few months. She rates her abdominal pain 5/10 but is unable to describe. She reports she is also had recent lower abdominal pain for which she is currently being treated for UTI with Bactrim. She denies any nausea or vomiting. Patient also concerned that she has a faint pink rash throughout her body. She denies any fevers or chills. She denies chest pain, shortness of breath, dizziness. No recent travel or sick contacts. PAST MEDICAL HISTORY: Denies past medical history SURGICAL HISTORY: See HPI ALLERGIES: No known drug allergies REVIEW OF SYSTEMS General/Constitutional: Denies fever or chills. Denies weakness, weight change. HEENT: Denies change in vision. Denies ear pain or discharge. Denies sore throat. Cardiovascular: Denies chest pain or shortness of breath. Respiratory: Denies cough, wheezing, or hemoptysis. Gastrointestinal: See HPI Genitourinary: Denies dysuria, frequency, or change in urination. Musculoskeletal: Denies joint or muscle swelling or pain. Denies neck or back pain. Skin and breasts: Denies rash or easy bruising. Neurologic: Denies headache, vertigo, loss of consciousness, or loss of sensation. Psychiatric: Denies depression or anxiety. Endocrine: Denies increased thirst. Denies abnormal weight change. Hematologic/Lymphatic: Denies anemia, easy bleeding, or history of blood clots. Allergic/Immunologic: Denies hives or skin allergy. Denies latex allergy. PHYSICAL EXAM General Appearance: Well-appearing, appropriately dressed. No apparent distress , no intoxication. HEENT: EOMI, PERRLA, normal ENT inspection, normal voice, TMs normal, pharynx normal. No conjunctival pallor. No photophobia, scleral icterus. Neck: Supple. Trachea midline. No tenderness, rigidity, carotid bruit, stridor , lymphadenopathy, or thyromegaly. Respiratory/Chest: Lungs CTAB. No shortness of breath, chest tenderness, respiratory distress, accessory muscle use. No crackles, rales, rhonchi, stridor , wheezing, dullness Cardiovascular: RRR. S1, S2. No JVD, murmur, bradycardia, tachycardia. Gastrointestinal/Abdominal: Normal bowel sounds. Abdomen soft, non-distended. No organomegaly, pulsatile mass, hernia, hepatomegaly, splenomegaly. Epigastric tenderness noted. No guarding present. Lymphatic: No adenopathy, tenderness. Musculoskeletal/Extremities: Normal inspection. FROM of all extremities, normal capillary refill. Pelvis Stable. No CVA tenderness. No tenderness to extremities, pedal edema, swelling, erythema or deformity. Integumentary: Faint pink raised pruritic rash present worse on the extremities and not noticeable on the trunk. Scratch gaspar present to the left anterior lower leg. Past History - Past Medical History Allergies/Adverse Reactions: Allergies Allergy/AdvReac Type Severity Reaction Status Date / Time No Known Allergies Allergy Verified 08/27/19 18:51 Home Medications: Ambulatory Orders Sulfamethoxazole/Trimethoprim [Sulfamethoxazole-Tmp Ds Tablet] 1 each PO BID Asthma: No Cancer: No Cardiac Disorders: No COPD: No Diabetes: No HTN: No Seizures: No Thyroid Disease: No - Reproductive History (#): 2 Para: 1 - Immunization History Immunization Up to Date: Yes - Psycho Social/Smoking Cessation Hx Smoking History: Never smoked Have you smoked in the past 12 months: No Hx Alcohol Use: No Drug/Substance Use Hx: No Substance Use Type: None Hx Substance Use Treatment: No *Physical Exam - Vital Signs Last Vital Signs Temp Pulse Resp BP Pulse Ox 98 F 87 18 114/77 99 08/27/19 18:52 08/27/19 18:52 08/27/19 18:52 08/27/19 18:52 08/27/19 18:52 ED Treatment Course - LABORATORY CBC & Chemistry Diagram: 08/27/19 20:30 08/27/19 20:30 - ADDITIONAL ORDERS Additional order review: Laboratory Results 08/27/19 08/27/19 08/27/19 20:30 20:30 20:30 Sodium 137 Potassium 4.2 Chloride 106 Carbon Dioxide 24 Anion Gap 6 L BUN 7.9 Creatinine 0.6 Est GFR (CKD-EPI)AfAm 142.76 Est GFR (CKD-EPI)NonAf 123.17 Random Glucose 91 Calcium 9.0 Total Bilirubin 0.8 AST 103 H ALT 158 H Alkaline Phosphatase 136 H Total Protein 8.2 Albumin 4.2 Urine Color Yellow Urine Appearance Clear Urine pH 5.0 D Ur Specific Randolph 1.005 L Urine Protein Negative Urine Glucose (UA) Negative Urine Ketones Negative Urine Blood Negative Urine Nitrite Negative Urine Bilirubin Negative Urine Urobilinogen 0.2 Ur Leukocyte Esterase Negative Urine HCG, Qual Negative 08/27/19 20:30 RBC 4.91 MCV 81.2 MCHC 33.9 RDW 12.6 MPV 8.1 Neutrophils % 77.3 D Lymphocytes % 14.8 D Monocytes % 6.8 Eosinophils % 0.8 Basophils % 0.3 - RADIOLOGY Radiology Studies Ordered: Category Date Time Status ABDOMEN US -LIMITED [US] Stat Ultrasound 08/27/19 21:45 Completed - Medications Given in the ED: ED Medications Discontinued Medications Generic Name Dose Route Start Last Admin Trade Name Freq PRN Reason Stop Dose Admin Sodium Chloride 1,000 mls @ 1,000 mls/hr 08/27/19 18:54 08/27/19 20:40 Normal Saline - IV 08/27/19 19:53 1,000 mls/hr ASDIR STA Administration Ondansetron HCl 4 mg 08/27/19 18:55 08/27/19 20:40 Zofran Injection IVPUSH 08/27/19 18:56 4 mg ONCE ONE Administration Medical Decision Making - Medical Decision Making 08/27/19 23:03 A/P: 29-year-old woman with epigastric abdominal pain radiating to her back Epigastric tenderness noted without guarding. Differential diagnosis includes but is not limited to pancreatitis, choledocholithiasis, gastritis, GERD, pneumonia Labs per [facility] Abdominal ultrasound IV fluids Reassess 08/28/19 01:01 Laboratory Tests 08/27/19 08/27/19 08/27/19 20:30 20:30 20:30 Sodium 137 Potassium 4.2 Chloride 106 Carbon Dioxide 24 Anion Gap 6 L BUN 7.9 Creatinine 0.6 Est GFR (CKD-EPI)AfAm 142.76 Est GFR (CKD-EPI)NonAf 123.17 Random Glucose 91 Calcium 9.0 Total Bilirubin 0.8 AST 103 H ALT 158 H Alkaline Phosphatase 136 H Total Protein 8.2 Albumin 4.2 Lipase Urine Color Yellow Urine Appearance Clear Urine pH 5.0 D Ur Specific Randolph 1.005 L Urine Protein Negative Urine Glucose (UA) Negative Urine Ketones Negative Urine Blood Negative Urine Nitrite Negative Urine Bilirubin Negative Urine Urobilinogen 0.2 Ur Leukocyte Esterase Negative Urine HCG, Qual Negative 08/27/19 23:40 Sodium Potassium Chloride Carbon Dioxide Anion Gap BUN Creatinine Est GFR (CKD-EPI)AfAm Est GFR (CKD-EPI)NonAf Random Glucose Calcium Total Bilirubin AST ALT Alkaline Phosphatase Total Protein Albumin Lipase 60 L Urine Color Urine Appearance Urine pH Ur Specific Randolph Urine Protein Urine Glucose (UA) Urine Ketones Urine Blood Urine Nitrite Urine Bilirubin Urine Urobilinogen Ur Leukocyte Esterase Urine HCG, Qual Liver enzymes slightly elevated as patient is currently on Bactrim for UTI. Ultrasound is read by Dr. Rojas: CBD is within normal limits. No retained stone visualized. Fatty liver noted. Patient reports he feels better and is requesting discharge at this time. I discussed the physical exam findings, ancillary test results and final diagnoses with the patient. I answered all of the patient's questions. The patient was satisfied with the care received and felt comfortable with the discharge plan and treatment plan. The patient will call their primary care physician within 24 hours to arrange follow-up and will return to the Emergency Department with any new, persistent or worsening symptoms. 08/28/19 01:03 Discharge - Discharge Information Problems reviewed: Yes Clinical Impression/Diagnosis: Elevated LFTs Condition: Stable Disposition: HOME - Admission No - Follow up/Referral Referrals: Radha Poole MD [Primary Care Provider] - - Patient Discharge Instructions Additional Instructions: Rest, drink lots of fluids: Teas, water, soups Gisselle james, carbonated beverages for the bubbles Avoid alcohol until symptoms have resolved Avoid contact with others until fevers and symptoms resolved Lots of handwashing and good hygiene Continue Bactrim as previously prescribed. Motrin for fever and pain Followup with private physician in one to 2 days as needed Return to emergency department for worsened symptoms, fevers, dehydration ofelia Nassaros lquidos: ts, agua, sopas Gisselle james, bebidas gaseosas para las burbujas. Evite el alcohol hasta que los sntomas se hayan resuelto. Evite el contacto con otras personas hasta que se resuelvan las fiebres y los sntomas. Lavado de salazar y buena higiene. Contine con Bactrim segn lo prescrito previamente. Motrin para fiebre y dolor Seguimiento con un mdico privado en trice o dos roe, segn sea necesario. Regrese al departamento de emergencias por sntomas empeorados, fiebre, deshidratacin. - Post Discharge Activity
[2019-08-28 01:22] VITALS: BP 115/76; PULSE 85
== END 2019-08-28 01:19 | disposition home or self-care (01) ==
LOC: JER 18:18
PROC: 3E033GC Introduction of Other Therapeutic Substance into Peripheral Vein, Percutaneous Approach (ICD-10-PCS; principal; 2019-08-27)
DX: R94.5 Abnormal results of liver function studies (principal); Z87.440 Personal history of urinary (tract) infections; Z79.2 Long term (current) use of antibiotics; Z90.49 Acquired absence of other specified parts of digestive tract
CPT/HCPCS: 36415; 76705-TC; 80053; 81003; 83690; 84703; 85025; 87086; 99283-25; J7030

== ENCOUNTER 2020-02-24 23:36 | Emergency (ER) | payer OTHER ==
[2020-02-24 23:52] VITALS: BMI 25.2
--- NOTE | 2020-02-24 23:56 | PDOC ---
History of Present Illness - General Chief Complaint: Nausea/Vomiting Stated Complaint: PAIN/VOMITING Time Seen by Provider: 02/24/20 23:51 History Source: Patient Exam Limitations: No Limitations - History of Present Illness Initial Comments: 02/24/20 23:56 Rylee Quinonez is a 29F with PSH cholecystectomy presenting with epigastric pain. Patient has had 3 days of worsening epigastric burning, described as a constant burning from her stomach to her throat that is worse at night, after meals, and makes all her food taste sour. Has been struggling with this problem for months but acute worse today. Denies history of GERD diagnosis, does not take any H2 blockers or PPI. Nausea at night but no vomiting, diarrhea. Denies fever/chills, chest pain, SOB, palpitations, cough. No prior cardiac history. Tolerating PO, last meal was dinner today with worsening of sx after. No recent alcohol or NSAID use. Has 2 year old and 9 month old children at home. LMP 30 days ago. Last sexual activity 2 days ago. Uses condoms for control. Denies vaginal bleeding or discharge, no history of STI. No sick contacts at home. Drinks a lot of water but has low urine output, denies dysuria or hematuria. NKDA No meds taken PSH reyna 2 years ago, 9 months ago Denies alcohol/drug/tobacco use Past History - Medical History Allergies/Adverse Reactions: Allergies Allergy/AdvReac Type Severity Reaction Status Date / Time No Known Allergies Allergy Verified 02/24/20 23:47 Home Medications: Ambulatory Orders Sulfamethoxazole/Trimethoprim [Sulfamethoxazole-Tmp Ds Tablet] 1 each PO BID 08/27/19 Pantoprazole Sodium [Protonix -] 40 mg PO DAILY #14 tablet.ec 02/25/20 Asthma: No Cancer: No Cardiac Disorders: No COPD: No Diabetes: No HTN: No Seizures: No Thyroid Disease: No - Surgical History Cholecystectomy: Yes - Reproductive History (#): 2 Para: 1 - Immunization History Immunization Up to Date: Yes - Psycho-Social/Smoking History Smoking History: Never smoked Have you smoked in the past 12 months: No Information on smoking cessation initiated: No - Substance Abuse Hx (Audit-C & DAST Scrn) How often the patient has a drink containing alcohol: Never Score: In Men: 4 or > Positive; In Women: 3 or > Positive: 0 Screen Result (Pos requires Nsg. Audit-10AR): Negative In the last yr the pt used illegal drug/Rx for NonMed reason: No Score: Yes response is considered Positive: 0 Screen Result (Positive result requires Nsg. DAST-10): Negative Review of Systems - Review of Systems Able to Perform ROS?: Yes Constitutional: No: Symptoms Reported Respiratory: No: Symptoms reported Cardiac (ROS): No: Symptoms Reported ABD/GI: Yes: Nausea, Abdominal cramping. No: Constipated, Diarrhea, Poor Appetite, Poor Fluid Intake, Vomiting : No: Symptoms Reported Musculoskeletal: No: Symptoms Reported Integumentary: No: Symptoms Reported Neurological: No: Symptoms reported Endocrine: No: Symptoms Reported Hematologic/Lymphatic: No: Symptoms Reported All Other Systems: Reviewed and Negative *Physical Exam - Vital Signs Last Vital Signs Temp Pulse Resp BP Pulse Ox 98.2 F 75 20 116/60 99 02/24/20 23:47 02/24/20 23:47 02/24/20 23:47 02/24/20 23:47 02/24/20 23:47 - Physical Exam General Appearance: Yes: Nourished, Appropriately Dressed, Other (pleasant, in NAD, resting in bed). No: Apparent Distress HEENT: positive: EOMI, CYNDY, Normal ENT Inspection, Normal Voice, Symmetrical, Pharynx Normal, Hearing Grossly Normal. negative: Pharyngeal Erythema, Tonsillar Exudate, Tonsillar Erythema Neck: positive: Trachea midline, Normal Thyroid, Supple. negative: Tender, Rigid, Lymphadenopathy (R), Lymphadenopathy (L), Tender lateral, Tender midline Respiratory/Chest: positive: Lungs Clear, Normal Breath Sounds. negative: Chest Tender, Respiratory Distress, Accessory Muscle Use, Labored Respiration, Crackles, Rales, Rhonchi, Stridor, Wheezing Cardiovascular: positive: Regular Rhythm, Regular Rate. negative: Bradycardia Gastrointestinal/Abdominal: positive: Normal Bowel Sounds, Flat, Soft, Other (well-healed Pfannenstiel incision). negative: Tender, Organomegaly, Pulsatile Mass, Distended, Guarding, Rebound, Hernia, Mass Musculoskeletal: positive: Normal Inspection. negative: CVA Tenderness, Decreased Range of Motion, Vertebral Tenderness Extremity: positive: Normal Capillary Refill, Normal Inspection, Normal Range of Motion, Pelvis Stable. negative: Tender, Pedal Edema, Swelling, Calf Tenderness, Erythema Integumentary: positive: Normal Color, Dry, Warm Neurologic: positive: Fully Oriented, Alert, Normal Mood/Affect, Normal Respon se, Other (gait normal) ED Treatment Course - LABORATORY CBC & Chemistry Diagram: 02/25/20 00:55 02/25/20 00:55 Medical Decision Making - Medical Decision Making 02/25/20 02:03 Patient has known history of cholecystectomy, here for epigastric pain, no cardiac history or risk factors. Burning pain highly consistent with GERD, worse with meals and at night, never taken medications. No evidence of concerning urinary or vaginal sx. VSS. Exam unremarkable. Evaluating for ACS vs. pancreatitis vs. gastritis vs vs UTI with CMP/CBC/CP/ECG/CXR/lipase/UPREG/UA/UC. Giving Maalox/Pepcid/lidocaine for GI relief. 02/25/20 03:45 ECG sinus bradycardia, HR 58, QTc 400, no KAMILLA/D or TWI. Labs notable for: - CBC WNL - CMP WNL - lipase WNL - negative - UA WNL CXR no abnormalities noted. Patient still having burning pain. Giving Protonix IV for further GERD vaibhav atment. 02/25/20 05:24 Patient feeling better now. Tolerating PO. Discussed discharge home with GERD precautions and Protonix. GI f/u given. Stable for D/C home. Discharge - Discharge Information Problems reviewed: Yes Clinical Impression/Diagnosis: Epigastric pain Nausea and vomiting Qualifiers: Vomiting type: unspecified Vomiting Intractability: non-intractable Qualified Code(s): R11.2 - Nausea with vomiting, unspecified GERD (gastroesophageal reflux disease) Qualifiers: Esophagitis presence: esophagitis presence not specified Qualified Code(s): K21.9 - Gastro-esophageal reflux disease without esophagitis Condition: Stable Disposition: HOME - Admission No - Additional Discharge Information Prescriptions: Pantoprazole Sodium [Protonix -] 40 mg PO DAILY #14 tablet.ec - Follow up/Referral Referrals: Monica Chen DO [Primary Care Provider] - Swapnil Ricardo MD [Staff Physician] - - Patient Discharge Instructions Patient Printed Discharge Instructions: DI for Gastroesophageal Reflux Disease (GERD) Additional Instructions: Hoy fuiste evaluado por dolor abdominal. Es probable que tenga gemini enfermedad por reflujo que est causando todos kirk sntomas. Lo hemos enviado a casa con gemini receta para Protonix, que debe nadya todos los roe para aliviar kirk sntomas. Debe realizar un seguimiento con chambers mdico de atencin primaria y le hemos derivado a un mdico GI para recibir ms atencin. Evite comer alimentos a altas horas de la noche y evite los alimentos picantes y el alcohol. Si experime nta un empeoramiento del dolor, nuseas, vmitos, diarrea o cualquier otro sntoma nuevo o preocupante, regrese a la miri de emergencias. Today you were evaluated for abdominal pain. You likely have reflux disease that is causing all your symptoms. We have sent you home with a prescription for Prot navin, which you should take every day to help your symptoms. You should follow- up with your primary doctor, and we have given you a referral to a GI doctor for further care. Avoid eating foods late at night, and avoid spicy foods and alcohol. If you experience any worsening pain, nausea, vomiting, diarrhea, or any other new or concerning symptoms, please return to the emergency room. - Post Discharge Activity
[2020-02-25] MEDS ORDERED: FAMOTIDINE 20 MG/50 ML IVPB 20 MG/50 ML MG IVPB ONE ×2 (00:28→00:38)
[2020-02-25 01:12] LABS: BASO % 0.4 % (0-2.0); EOS % 1.8 % (0-4.5); HEMOGLOBIN 12.6 GM/dL (10.7-15.3); LYMPH % 29.8 % (8-40); MCH 25.9 pg (25.7-33.7); MCHC 33.1 g/dl (32.0-36.0); MEAN CELL VOLUME 78.3 fl (80-96); MEAN PLT VOLUME 8.2 fl (7.5-11.1); MONO % 8.8 % (3.8-10.2); NEUT % 59.2 % (42.8-82.8); PLATELET COUNT 296 K/MM3 (134-434); RBC 4.85 M/mm3 (3.60-5.2); RDW 14.8 % (11.6-15.6); WHITE BLOOD COUNT 6.6 K/mm3 (4.0-10.0)
--- NOTE | 2020-02-25 01:20 | PDOC ---
Documentation entered by Davina Yoder SCRIBE, acting as scribe for Anabell Daugherty DO. Anabell Daugherty DO: This documentation has been prepared by the Paresh escobar Xhesika, SCRIBE, under my direction and personally reviewed by me in its entirety. I confirm that the documentation accurately reflects all work, treatment, procedures, and medical decision making performed by me. Attending Attestation - Resident Resident Name: Reinaldo Arthur - ED Attending Attestation I have performed the following: I have examined & evaluated the patient, The case was reviewed & discussed with the resident, I agree w/resident's findings & plan, Exceptions are as noted - HPI HPI: 02/24/20 23:59 The patient is a 29y/o F with a PMH of holecystectomy, gastritis elevated liver enzymes being followed by GI who presents to the the ED with epigastric buring and nausea. Pt states her burning goes all the way up to her throat assocaited with the urge to vomit. Pt denies vomiting. The patient denies chest pain, shortness of breath, headache and dizziness. Denies fever, chills, cough, diarrhea and constipation. Denies dysuria, frequency, urgency and hematuria. Allergies: NKDA PCP: Monica Escalante - Physicial Exam PE: 02/25/20 00:50 GENERAL: Awake, alert, and fully oriented, in no acute distress HEAD: No signs of trauma NECK: Normal ROM, supple, no lymphadenopathy, JVD, or masses LUNGS: Breath sounds equal, clear to auscultation bilaterally. No wheezes, and no crackles HEART: Regular rate and rhythm, normal S1 and S2, no murmurs, rubs or gallops ABDOMEN:+epigastric tenderness to palpation. Negative Bucio's. Soft, normoactive bowel sounds. No guarding, no rebound. No masses EXTREMITIES: Normal range of motion, no edema. No clubbing or cyanosis. No cords, erythema, or tenderness NEUROLOGICAL: Cranial nerves II through XII grossly intact. SKIN: Warm, Dry, normal turgor, no rashes lesions noted. - Medical Decision Making 02/25/20 01:19 a/p: 29yo female with epigastric burning -was supposed to undergo egd testing, but didn't do it back in July -epigastric burning with sore taste in mouth -suspect gerd -labs sent are pending -will medicate with gi meds, will monitor and reassess -will need outpt gi eval and egd -pt is nontoxic in appearance 02/25/20 01:21 cbc reviewed and stable 02/25/20 02:18 labs reviewed and normal pending ua, ucg pt with suspected gerd, pending re-eval and ua Heart Score/ECG Review - ECG Intrepretation Comment:: 02/25/20 01:19 sinus michael at 58, nl axis, nl interval, no acute st/t wave findings Discharge - Discharge Information Problems reviewed: Yes Clinical Impression/Diagnosis: Epigastric pain Nausea and vomiting Qualifiers: Vomiting type: unspecified Vomiting Intractability: non-intractable Qualified Code(s): R11.2 - Nausea with vomiting, unspecified GERD (gastroesophageal reflux disease) Qualifiers: Esophagitis presence: esophagitis presence not specified Qualified Code(s): K21.9 - Gastro-esophageal reflux disease without esophagitis Condition: Stable - Follow up/Referral Referrals: Monica Chen DO [Primary Care Provider] - - Patient Discharge Instructions - Post Discharge Activity
[2020-02-25] MEDS ORDERED: MAG HYDROX/AL HYDROX/SIMETH -MYLANTA- ORAL SUSPENSION PO ONE (01:26)
[2020-02-25] MEDS ORDERED: LIDOCAINE VISCOUS 2% ORAL/TOP 20 ML UNIT-DOSE CUP MM ONE (01:26)
[2020-02-25 01:44] LABS: ALBUMIN 3.7 g/dl (3.4-5.0); BILIRUBIN,TOTAL 0.2 mg/dL (0.2-1); BLOOD UREA NITROGEN 11.8 mg/dL (7-18); CALCIUM 9.1 mg/dL (8.5-10.1); CREATININE 0.7 mg/dL (0.55-1.3); POTASSIUM 4.2 mmol/L (3.5-5.1); TOT PROT 7.7 g/dl (6.4-8.2)
[2020-02-25] MEDS ORDERED: LIDOCAINE VISCOUS 2% ORAL/TOP 20 ML UNIT-DOSE CUP ONE (02:01)
[2020-02-25] MEDS ORDERED: MAG HYDROX/AL HYDROX/SIMETH 30 ML UNIT-DOSE CUP ONE (02:01)
[2020-02-25 02:26] LABS: PH,URINE 6.5 (5.0-8.0); URINE APPEARANCE CLEAR; URINE BILIRUBIN NEGATIVE (NEGATIVE); URINE COLOR YELLOW; URINE GLUCOSE (UA) NEGATIVE (NEGATIVE); URINE KETONE NEGATIVE (NEGATIVE); URINE LEUK ESTERASE NEGATIVE (NEGATIVE); URINE NITRITE NEGATIVE (NEGATIVE); URINE PROTEIN NEGATIVE (NEGATIVE); URINE UROBILINOGEN 0.2 mg/dL (0.2-1.0)
[2020-02-25 02:27] LABS: HCG,QUALITATIVE URINE Negative
[2020-02-25] MEDS ORDERED: PANTOPRAZOLE SODIUM 40 MG VIAL IVPUSH ONE (04:06)
[2020-02-25] MEDS ORDERED: PANTOPRAZOLE SODIUM 40 MG/100 ML BAG IVPB ONE (04:11)
[2020-02-25 06:14] VITALS: BP 105/52; PULSE 68; TEMP 98.9
--- NOTE | 2020-02-25 11:31 | EKG ---
Test Reason : Blood Pressure : / mmHG Vent. Rate : 058 BPM Atrial Rate : 058 BPM P-R Int : 154 ms QRS Dur : 072 ms QT Int : 408 ms P-R-T Axes : 043 045 027 degrees QTc Int : 400 ms SINUS BRADYCARDIA OTHERWISE NORMAL ECG WHEN COMPARED WITH ECG OF 01-JUL-2019 01:58, NO SIGNIFICANT CHANGE WAS FOUND Confirmed by MIGUEL PICKENS MD ([id number]) on 02/25/2020 11:31:11 AM Referred By: Confirmed By:MIGUEL PICKENS MD
== END 2020-02-25 06:16 | disposition home or self-care (01) ==
LOC: JER 23:36
PROC: 3E033GC Introduction of Other Therapeutic Substance into Peripheral Vein, Percutaneous Approach (ICD-10-PCS; principal; 2020-02-24)
DX: K21.9 Gastro-esophageal reflux disease without esophagitis (principal); R11.2 Nausea with vomiting, unspecified
CPT/HCPCS: 36415; 71046-TC-FY; 80053; 81003; 82550; 83690; 84484; 84703; 85025; 93005; 93010; 99285-25

== ENCOUNTER 2020-04-28 19:22 | Emergency (ER) | payer OTHER ==
[2020-04-28 19:32] VITALS: BP 98/58; PULSE 67; TEMP 98.4; BMI 24.4
[2020-04-28] MEDS ORDERED: SODIUM CHLORIDE 1,000 ML IV STA (20:08)
[2020-04-28] MEDS ORDERED: ACETAMINOPHEN 1000 MG/100 ML VIAL (NON FORMULARY) IVPB ONE (20:08)
[2020-04-28] MEDS ORDERED: MAG HYDROX/AL HYDROX/SIMETH 30 ML UNIT-DOSE CUP PO ONE (20:08)
[2020-04-28] MEDS ORDERED: FAMOTIDINE 20 MG/50 ML IVPB 20 MG/50 ML MG IVPB ONE ×2 (20:08→20:21)
[2020-04-28] MEDS ORDERED: LIDOCAINE VISCOUS 2% ORAL/TOP 20 ML UNIT-DOSE CUP MM ONE (20:08)
[2020-04-28] MEDS ORDERED: ONDANSETRON 4 MG/2 ML VIAL IVPUSH ONE (20:08)
[2020-04-28] MEDS ORDERED: LIDOCAINE VISCOUS 2% ORAL/TOP 20 ML UNIT-DOSE CUP ONE (20:20)
[2020-04-28] MEDS ORDERED: MAG HYDROX/AL HYDROX/SIMETH 30 ML UNIT-DOSE CUP ONE (20:20)
[2020-04-28] MEDS ORDERED: ACETAMINOPHEN INJECTION 100 ML IVPB ONE (20:20)
--- NOTE | 2020-04-28 21:02 | PDOC ---
History of Present Illness - General Chief Complaint: Pain, Acute Stated Complaint: ABDOMINAL PAIN Time Seen by Provider: 04/28/20 19:44 History Source: Patient Exam Limitations: No Limitations Past History - Travel History Traveled outside of the country in the last 30 days: No Close contact w/someone who was outside of country & ill: No - Medical History Allergies/Adverse Reactions: Allergies Allergy/AdvReac Type Severity Reaction Status Date / Time No Known Allergies Allergy Verified 02/24/20 23:47 Home Medications: Ambulatory Orders Sulfamethoxazole/Trimethoprim [Sulfamethoxazole-Tmp Ds Tablet] 1 each PO BID 08/27/19 Pantoprazole Sodium [Protonix -] 40 mg PO DAILY #14 tablet.ec 02/25/20 Famotidine [Pepcid -] 20 mg PO BID #14 tablet 04/28/20 Mag Hydrox/Al Hydrox/Simeth [Mylanta *Suspension*] 30 ml PO Q6H #1 bottle 04/28/20 Omeprazole 20 mg PO DAILY #14 tablet. 04/28/20 Ondansetron [Zofran Odt -] 4 mg SL TID #10 tab.sl 04/28/20 Asthma: No Cancer: No Cardiac Disorders: No COPD: No Diabetes: No HTN: No Seizures: No Thyroid Disease: No - Surgical History Cholecystectomy: Yes - Reproductive History Is Patient Now?: No (#): 2 Para: 1 - Immunization History Immunization Up to Date: Yes - Psycho-Social/Smoking History Smoking History: Never smoked Have you smoked in the past 12 months: No - Substance Abuse Hx (Audit-C & DAST Scrn) How often the patient has a drink containing alcohol: Never Score: In Men: 4 or > Positive; In Women: 3 or > Positive: 0 Screen Result (Pos requires Nsg. Audit-10AR): Negative In the last yr the pt used illegal drug/Rx for NonMed reason: No Score: Yes response is considered Positive: 0 Screen Result (Positive result requires Nsg. DAST-10): Negative Review of Systems - Review of Systems Able to Perform ROS?: Yes Comments:: 04/28/20 20:26 CONSTITUTIONAL: Absent: fever, chills, diaphoresis, generalized weakness, malaise, loss of appetite HEENT: Absent: rhinorrhea, nasal congestion, throat pain, throat swelling, difficulty swallowing, mouth swelling, ear pain, eye pain, visual changes CARDIOVASCULAR: Absent: chest pain, loss of consciousness, palpitations, irregular heart rate, peripheral edema RESPIRATORY: Absent: cough, shortness of breath, dyspnea with exertion, orthopnea, wheezing, stridor, hemoptysis GASTROINTESTINAL: Present: abdominal pain, nausea, acid reflux, loss of taste Absent: abdominal distension, vomiting, diarrhea, constipation, melena, hematochezia GENITOURINARY: Absent: dysuria, frequency, urgency, hesitancy, hematuria, flank pain, genital pain MUSCULOSKELETAL: Absent: myalgia, arthralgia, joint swelling SKIN: Absent: rash, itching, pallor HEMATOLOGIC/IMMUNOLOGIC: Absent: easy bleeding, easy bruising, lymphadenopathy, frequent infections ENDOCRINE: Absent: unexplained weight gain, unexplained weight loss, heat intolerance, cold intolerance NEUROLOGIC: Absent: headache, focal weakness or paresthesias, dizziness, unsteady gait, seizure, mental status changes, bladder or bowel incontinence PSYCHIATRIC: Absent: anxiety, depression, suicidal or homicidal ideation, hallucinations. Is the patient limited [place]er proficient: No *Physical Exam - Vital Signs Last Vital Signs Temp Pulse Resp BP Pulse Ox 98.4 F 67 19 98/58 L 99 04/28/20 19:25 04/28/20 19:25 04/28/20 19:25 04/28/20 19:25 04/28/20 19:25 - Physical Exam 04/28/20 21:05 GENERAL: Well developed, well nourished. Awake and alert. No acute distress. HEENT: Normocephalic, atraumatic. PERRLA, EOMI. No conjunctival pallor. Sclera are non- icteric. Moist mucous membranes. NECK: Supple. Full ROM. No lymphadenopathy. CARDIOVASCULAR: Regular rate and rhythm. Distal pulses are 2+ and symmetric. PULMONARY: No evidence of respiratory distress. Lungs clear to auscultation bilaterally. No wheezing, rales or rhonchi. ABDOMINAL: TTP of the epigastric region. Soft. Non-distended. No rebound or guarding. MUSCULOSKELETAL Normal range of motion at all joints. No bony deformities or tenderness. No CVA tenderness. EXTREMITIES: No cyanosis. No clubbing. No edema. No calf tenderness. SKIN: Warm and dry. Normal capillary refill. No rashes. No jaundice. NEUROLOGICAL: Alert, awake, appropriate. Cranial nerves 2-12 intact. No deficits to light touch and temperature in face, upper extremities and lower extremities. No motor deficits in the in face, upper extremities and lower extremities. Normoreflexic in the upper and lower extremities. Normal speech. Toes are down-going bilaterally. Gait is normal without ataxia. PSYCHIATRIC: Cooperative. Good eye contact. Appropriate mood and affect. ED Treatment Course - LABORATORY CBC & Chemistry Diagram: 04/28/20 20:40 04/28/20 20:40 Medical Decision Making - Medical Decision Making 04/28/20 23:03 The patient is a 29-year-old female past medical history of cholecystectomy, gastritis, peptic ulcers, presents to the ER today for epigastric pain. She states that she feels like the pain is going up her chest and burning in nature. She notes that she has a sour taste in her mouth and food does not taste right. She states that she had recently been on omeprazole however she stopped the medication. She states she restarted it 3 days ago. She states that she is still have a lot of burning in her stomach and she was concerned so she came to the ER for evaluation. Denies fevers, chills, vomiting, diarrhea, constipation, blood in the vomit or stool, dysuria and hematuria. A/P: Abdominal pain On exam patient is tender to palpation over the epigastric region. Otherwise exam is unremarkable. Likely a episode of patient's reflux. However given location of pain, will order a broad work-up including EKG and cardiac enzymes. Decreased taste/sour taste likely d/t gastritis. GI cocktail given EKG performed: Rate 56 bpm, sinus bradycardia. Normal intervals and axis. T waves flipped in V1 through 3 however no depressions, unlikely ischemia. Upon reevaluation, pain is improved after GI cocktail. Troponin negative, electrolytes unremarkable. Urine is negative for infection We will treat for reflux and have the patient follow-up with her primary care doctor. Return precautions given. I discussed the physical exam findings, ancillary test results and final diagnoses with the patient. I answered all of the patient's questions. The patient was satisfied with the care received and felt comfortable with the discharge plan and treatment plan. The Patient agrees to follow up with the primary care physician/specialist within 24-72 hours. Return precautions were given. Discharge - Discharge Information Problems reviewed: Yes Clinical Impression/Diagnosis: Abdominal pain in female patient GERD (gastroesophageal reflux disease) Qualifiers: Esophagitis presence: esophagitis presence not specified Qualified Code(s): K21.9 - Gastro-esophageal reflux disease without esophagitis Condition: Stable Disposition: HOME - Admission No - Additional Discharge Information Prescriptions: Mag Hydrox/Al Hydrox/Simeth [Mylanta *Suspension*] 30 ml PO Q6H #1 bottle Omeprazole 20 mg PO DAILY #14 tablet. Famotidine [Pepcid -] 20 mg PO BID #14 tablet Ondansetron [Zofran Odt -] 4 mg SL TID #10 tab.sl - Follow up/Referral Referrals: Tami Blancas MD [Primary Care Provider] - Swapnil Ricardo MD [Staff Physician] - - Patient Discharge Instructions Patient Printed Discharge Instructions: DI for Gastritis Additional Instructions: You were seen for your abdominal pain today. It is most likely due to your gastritis. Please take the Pepcid, Mylanta, omeprazole as directed for 1 week. You may take the Zofran as needed for nausea. Please avoid spicy foods, fatty foods and foods high in acid, as this can make your symptoms worse. Do not take any NSAIDs (Motrin, Aleve, Advil, aspirin) until your symptoms have improved. Please follow-up with your primary care doctor this week. You have also been provided a referral to see a credit clerk. Please call for a follow-up appointment. Return to the ER for worsening pain, fever, vomiting blood or if you have any changes in your symptoms. Hoy te vieron por tu dolor abdominal. Lo ms probable es que se deba a chambers gastritis. [place] Pepcid, Mylanta, omeprazol segn las indicaciones shaheed 1 semana. Puede nadya Zofran segn sea necesario para las nuseas. Evite los alimentos picantes, los alimentos grasos y los alimentos con alto contenido de cido, ya que esto puede empeorar kirk sntomas. No tome ningn PABLO (Motrin, Aleve, Advil, aspirina) hasta que kirk sntomas hayan eda. Bhanu un seguimiento con chambers mdico de atencin primaria esta semana. Tambin se le nazario proporcionado gemini remisin para janette a un gastroenterlogo. Llame para gemini neha de seguimiento. Regrese a la miri de emergencias si el dolor empeora, la fiebre, los vmitos con regla o si tiene algn cambio en kirk sntomas. Print Language: [place] - Post Discharge Activity Work/Back to School Note: Back to Work
[2020-04-28 21:18] LABS: BASO % 0.5 % (0-2.0); EOS % 1.1 % (0-4.5); HEMATOCRIT 35.9 % (32.4-45.2); LYMPH % 31.4 % (8-40); MCH 25.4 pg (25.7-33.7); MCHC 33.5 g/dl (32.0-36.0); MEAN CELL VOLUME 75.8 fl (80-96); MEAN PLT VOLUME 8.1 fl (7.5-11.1); MONO % 8.6 % (3.8-10.2); NEUT % 58.4 % (42.8-82.8); PLATELET COUNT 307 K/MM3 (134-434); RBC 4.73 M/mm3 (3.60-5.2); RDW 13.8 % (11.6-15.6); WHITE BLOOD COUNT 6.1 K/mm3 (4.0-10.0)
[2020-04-28 21:44] LABS: URINE APPEARANCE CLEAR; URINE BILIRUBIN NEGATIVE (NEGATIVE); URINE COLOR YELLOW; URINE GLUCOSE (UA) NEGATIVE (NEGATIVE); URINE KETONE NEGATIVE (NEGATIVE); URINE LEUK ESTERASE NEGATIVE (NEGATIVE); URINE NITRITE NEGATIVE (NEGATIVE); URINE PROTEIN NEGATIVE (NEGATIVE); URINE UROBILINOGEN 0.2 mg/dL (0.2-1.0)
[2020-04-28 21:49] LABS: ALK PHOS 89 U/L (45-117); ANION GAP 6 MMOL/L (8-16); BILIRUBIN,TOTAL 0.2 mg/dL (0.2-1); BLOOD UREA NITROGEN 13.2 mg/dL (7-18); CALCIUM 9.1 mg/dL (8.5-10.1); CHLORIDE 107 mmol/L (98-107); CO2 25 mmol/L (21-32); CREATININE 0.5 mg/dL (0.55-1.3); GLUCOSE,RANDOM 86 mg/dL (74-106); LIPASE 144 U/L (73-393); POTASSIUM 4.1 mmol/L (3.5-5.1); SGOT/AST 23 U/L (15-37); SGPT/ALT 33 U/L (13-61); SODIUM 138 mmol/L (136-145)
[2020-04-29 02:20] LABS: HCG,QUALITATIVE URINE Negative
--- NOTE | 2020-04-29 10:33 | EKG ---
Test Reason : Blood Pressure : / mmHG Vent. Rate : 056 BPM Atrial Rate : 056 BPM P-R Int : 146 ms QRS Dur : 076 ms QT Int : 414 ms P-R-T Axes : 062 059 047 degrees QTc Int : 399 ms SINUS BRADYCARDIA POSSIBLE LEFT ATRIAL ENLARGEMENT NONSPECIFIC T WAVE ABNORMALITY ABNORMAL ECG Confirmed by DAY RAMOS MD ([id number]) on 04/29/2020 10:33:02 AM Referred By: Confirmed By:DAY RAMOS MD
== END 2020-04-28 23:55 | disposition home or self-care (01) ==
LOC: JER 19:22
PROC: 3E0333Z Introduction of Anti-inflammatory into Peripheral Vein, Percutaneous Approach (ICD-10-PCS; principal; 2020-04-28)
PROC: 3E033GC Introduction of Other Therapeutic Substance into Peripheral Vein, Percutaneous Approach (ICD-10-PCS; 2020-04-28)
PROC: 3E0337Z Introduction of Electrolytic and Water Balance Substance into Peripheral Vein, Percutaneous Approach (ICD-10-PCS; 2020-04-28)
DX: R10.9 Unspecified abdominal pain (principal); K21.9 Gastro-esophageal reflux disease without esophagitis
CPT/HCPCS: 36415; 80053; 81003; 82550; 83690; 84484; 84703; 85025; 86769; 87086; 93005; 93010; 99284-25; J0131; U0003

== ENCOUNTER 2020-08-05 19:12 | Emergency (ER) | payer OTHER ==
[2020-08-05 19:40] VITALS: BP 105/52; PULSE 72; TEMP 98; BMI 25.9
[2020-08-05] MEDS ORDERED: ACETAMINOPHEN 325 MG TABLET (FP) PO ONE (21:40)
[2020-08-05 22:00] LABS: URINE APPEARANCE CLOUDY; URINE BILIRUBIN NEGATIVE (NEGATIVE); URINE COLOR YELLOW; URINE GLUCOSE (UA) NEGATIVE (NEGATIVE); URINE KETONE NEGATIVE (NEGATIVE); URINE LEUK ESTERASE NEGATIVE (NEGATIVE); URINE NITRITE NEGATIVE (NEGATIVE); URINE PROTEIN NEGATIVE (NEGATIVE); URINE UROBILINOGEN 0.2 mg/dL (0.2-1.0)
[2020-08-05] MEDS ORDERED: ACETAMINOPHEN 325 MG TABLET (FP) ONE (22:42)
== END 2020-08-06 02:26 | disposition home or self-care (01) ==
LOC: JER 19:12
DX: D25.9 Leiomyoma of uterus, unspecified (principal)
CPT/HCPCS: 74019-TC-FY; 76830-TC; 81003; 84703; 93005; 93010; 99285-25

== ENCOUNTER 2021-02-20 20:15 | Emergency (ER) | payer OTHER ==
[2021-02-20 20:22] VITALS: BP 99/57; PULSE 61; TEMP 97.8; BMI 25.4
[2021-02-20] MEDS ORDERED: ACETAMINOPHEN 500 MG TABLET (FP) PO ONE (21:32)
[2021-02-20 22:27] LABS: URINE APPEARANCE CLEAR; URINE BILIRUBIN NEGATIVE (NEGATIVE); URINE COLOR YELLOW; URINE GLUCOSE (UA) NEGATIVE (NEGATIVE); URINE KETONE NEGATIVE (NEGATIVE); URINE LEUK ESTERASE NEGATIVE (NEGATIVE); URINE NITRITE NEGATIVE (NEGATIVE); URINE PROTEIN NEGATIVE (NEGATIVE); URINE UROBILINOGEN 0.2 mg/dL (0.2-1.0)
[2021-02-20 22:35] LABS: HCG,QUALITATIVE URINE Negative
[2021-02-20] MEDS ORDERED: ACETAMINOPHEN 500 MG TABLET (FP) ONE (22:56)
== END 2021-02-20 23:10 | disposition home or self-care (01) ==
LOC: JER 20:15
DX: N73.9 Female pelvic inflammatory disease, unspecified (principal)
CPT/HCPCS: 36415; 76830-TC; 81003; 84703; 87070; 87086; 87205; 87491; 87591; 87661; 99283-25

== ENCOUNTER 2021-04-16 23:33 | Emergency (ER) | payer OTHER ==
[2021-04-16 23:57] VITALS: BMI 29.2
[2021-04-17 01:14] LABS: PH,URINE 6.5 (5.0-8.0); URINE APPEARANCE CLEAR; URINE BILIRUBIN NEGATIVE (NEGATIVE); URINE COLOR DK YELLOW; URINE GLUCOSE (UA) NEGATIVE (NEGATIVE); URINE KETONE NEGATIVE (NEGATIVE); URINE LEUK ESTERASE NEGATIVE (NEGATIVE); URINE NITRITE NEGATIVE (NEGATIVE); URINE PROTEIN NEGATIVE (NEGATIVE); URINE UROBILINOGEN 0.2 mg/dL (0.2-1.0)
[2021-04-17] MEDS ORDERED: metroNIDAZOLE 250 MG TABLET PO ONE (03:17)
[2021-04-17] MEDS ORDERED: SODIUM CHLORIDE 0.9% 500 ML INFUS.BAG IV ONE (03:55)
[2021-04-17 04:26] LABS: BASO % 0.8 % (0-2.0); EOS % 2.2 % (0-4.5); HEMATOCRIT 29.5 % (32.4-45.2); HEMOGLOBIN 9.7 GM/dL (10.7-15.3); LYMPH % 34.7 % (8-40); MCH 21.9 pg (25.7-33.7); MCHC 32.7 g/dl (32.0-36.0); MEAN CELL VOLUME 66.9 fl (80-96); MEAN PLT VOLUME 7.6 fl (7.5-11.1); NEUT % 54.3 % (42.8-82.8); PLATELET COUNT 366 10^3/uL (134-434); RBC 4.42 M/mm3 (3.60-5.2); RDW 15.7 % (11.6-15.6); WHITE BLOOD COUNT 6.8 K/mm3 (4.0-10.0)
[2021-04-17 04:46] LABS: CALCIUM 8.8 mg/dL (8.5-10.1)
[2021-04-17 04:47] LABS: ALBUMIN 3.8 g/dl (3.4-5.0); BLOOD UREA NITROGEN 10.1 mg/dL (7-18)
[2021-04-17 04:50] LABS: CREATININE 0.5 mg/dL (0.55-1.3)
[2021-04-17 04:51] LABS: BILIRUBIN,TOTAL 0.2 mg/dL (0.2-1); TOT PROT 7.6 g/dl (6.4-8.2)
[2021-04-17 06:21] VITALS: BP 115/82; PULSE 79; TEMP 98.9
[2021-04-17 11:10] LABS: ANISOCYTOSIS 1+; MACROCYTOSIS 0; PLATELET ESTIMATE NORMAL
== END 2021-04-17 06:21 | disposition home or self-care (01) ==
LOC: JER 23:33
PROC: 3E0233Z Introduction of Anti-inflammatory into Muscle, Percutaneous Approach (ICD-10-PCS; principal; 2021-04-16)
DX: R10.31 Right lower quadrant pain (principal)
CPT/HCPCS: 36415; 74177-TC; 76830-TC; 80053; 81003; 84703; 85025; 87086; 87186; 87491; 87591; 87661; 99285-25

== ENCOUNTER 2022-05-23 01:12 | Emergency (ER) | payer OTHER ==
[2022-05-23 01:30] VITALS: BP 103/65; PULSE 85; RESP 18; TEMP 98.3; BMI 26.2
[2022-05-23] MEDS ORDERED: CARBAMIDE PEROXIDE 6.5% OTIC 15 ML BOTTLE AU ONE (01:49)
[2022-05-23] MEDS ORDERED: ACETAMINOPHEN 500 MG TABLET (FP) PO ONE (01:49)
[2022-05-23] MEDS ORDERED: ACETAMINOPHEN 325 MG TABLET (FP) ONE (01:56)
== END 2022-05-23 02:57 | disposition home or self-care (01) ==
LOC: JER 01:12
DX: H66.91 Otitis media, unspecified, right ear (principal); H61.21 Impacted cerumen, right ear
CPT/HCPCS: 0241U-QW; 87070; 87651; 99283-25

== ENCOUNTER 2024-03-23 08:20 | Inpatient (IN) | payer OTHER ==
[2024-03-23 09:19] LABS: BASO % 0.2 % (0-2.0); EOS % 0.4 % (0-4.5); HEMATOCRIT 36.8 % (32.4-45.2); HEMOGLOBIN 12.4 GM/dL (10.7-15.3); LYMPH % 18.6 % (8-40); MCH 26.8 pg (25.7-33.7); MCHC 33.8 g/dl (32.0-36.0); MEAN CELL VOLUME 79.4 fl (80-96); MEAN PLT VOLUME 7.4 fl (7.5-11.1); MONO % 7.5 % (3.8-10.2); NEUT % 73.3 % (42.8-82.8); PLATELET COUNT 258 10^3/uL (134-434); RBC 4.64 M/mm3 (3.60-5.2); RDW 18.2 % (11.6-15.6)
[2024-03-23 09:25] LABS: INR 0.86 (0.83-1.09); PROTHROMBIN TIME (PATIENT) 9.8 SEC (9.7-13.0)
[2024-03-23 09:28] LABS: ACTIVATED PTT 28.4 SECONDS (25.2-36.5)
[2024-03-23] MEDS: ELECTROLYTE-148 SOLN 1,000 ML IV SCH (09:30)
[2024-03-23 09:40] LABS: CHLORIDE 106 mmol/L (98-107); SODIUM 138 mmol/L (136-145)
[2024-03-23 09:41] LABS: CALCIUM 9.3 mg/dL (8.5-10.1)
[2024-03-23 09:42] LABS: ANION GAP 10 mmol/L (4-13); BLOOD UREA NITROGEN 7.4 mg/dL (7-18); CO2 23 mmol/L (21-32); GLUCOSE,RANDOM 79 mg/dL (74-106)
[2024-03-23 09:45] LABS: CREATININE 0.5 mg/dL (0.55-1.3)
[2024-03-23 12:26] VITALS: BMI 28.7
[2024-03-23] MEDS ORDERED: OXYTOCIN 30 UNITS in 0.9% NS 30 UNIT/500 ML INFUS.BAG IVPB ONE (12:36)
[2024-03-23] MEDS: OXYTOCIN 30 UNITS in 0.9% NS 30 UNIT/500 ML INFUS.BAG IVPB SCH (12:40)
[2024-03-23] MEDS ORDERED: BUTORPHANOL TARTRATE 2 MG/ML VIAL ONE (16:48)
[2024-03-23] MEDS: PROMETHAZINE HCL 25 MG/1 ML VIAL IVPB ONE (17:05)
[2024-03-23] MEDS: BUTORPHANOL TARTRATE 1 MG/ML VIAL IVPB ONE (17:05)
[2024-03-23] MEDS ORDERED: morphine SULFATE/PF 1 MG/2 ML (2cc Syringe - QUVA) ONE (20:21)
[2024-03-23] MEDS ORDERED: AZITHROMYCIN IVPB 500 MG/250 ML BAG IVPB ONE (21:44)
[2024-03-23] MEDS ORDERED: OXYTOCIN 20 UNITS in 0.9% NS 20 UNIT/1,000 ML INFUS.BAG IV ONE (21:44)
[2024-03-23] MEDS: AZITHROMYCIN IVPB 500 MG/250 ML BAG IVPB STA (22:00)
[2024-03-23] MEDS: OXYTOCIN 20 UNITS in 0.9% NS 20 UNIT/1,000 ML INFUS.BAG IV SCH (22:00)
[2024-03-24] MEDS: IBUPROFEN 800 MG/8 ML IJ IVPB PRN (00:08)
[2024-03-24 09:09] LABS: BASO % 0.2 % (0-2.0); EOS % 0.2 % (0-4.5); HEMATOCRIT 31.3 % (32.4-45.2); HEMOGLOBIN 10.7 GM/dL (10.7-15.3); MCH 27.3 pg (25.7-33.7); MCHC 34.1 g/dl (32.0-36.0); MEAN CELL VOLUME 80.2 fl (80-96); MEAN PLT VOLUME 7.7 fl (7.5-11.1); MONO % 6.6 % (3.8-10.2); PLATELET COUNT 212 10^3/uL (134-434); RDW 17.9 % (11.6-15.6); WHITE BLOOD COUNT 8.9 K/mm3 (4.0-10.0)
[2024-03-24] MEDS: IBUPROFEN 600 MG TABLET (FP) PO PRN (12:44)
[2024-03-24] MEDS: oxyCODONE HCL 5 MG TABLET PO PRN (17:02)
[2024-03-24] MEDS: SIMETHICONE 80 MG TAB.CHEW (FP) PO PRN (19:16)
[2024-03-24] MEDS ORDERED: BISACODYL 10 MG SUPP.RECT RC PRN (20:09)
[2024-03-24] MEDS: ACETAMINOPHEN 325 MG TABLET (FP) PO PRN (20:52)
[2024-03-24 22:12] VITALS: RESP 18
[2024-03-25 10:21] VITALS: PULSE 85
[2024-03-26 07:16] LABS: BASO % 0.3 % (0-2.0); EOS % 0.3 % (0-4.5); HEMATOCRIT 29.7 % (32.4-45.2); HEMOGLOBIN 10.1 GM/dL (10.7-15.3); MCH 27.2 pg (25.7-33.7); MCHC 33.9 g/dl (32.0-36.0); MEAN CELL VOLUME 80.3 fl (80-96); MEAN PLT VOLUME 7.3 fl (7.5-11.1); MONO % 5.7 % (3.8-10.2); NEUT % 76.7 % (42.8-82.8); PLATELET COUNT 257 10^3/uL (134-434); RDW 17.8 % (11.6-15.6); WHITE BLOOD COUNT 6.4 K/mm3 (4.0-10.0)
[2024-03-26 09:42] VITALS: BP 101/63; TEMP 98.2
== END 2024-03-26 12:35 | disposition home or self-care (01) | DRG 540 ==
LOC: JLDR 08:20 → J3W 23:55
PROVIDERS: ADMIT Student in an Organized Health Care Education/Training Program; ATTEND Student in an Organized Health Care Education/Training Program
PROC: 10D00Z1 Extraction of Products of Conception, Low, Open Approach (ICD-10-PCS; principal; 2024-03-23)
DX: O66.41 Failed attempted vaginal birth after previous cesarean delivery (principal); O61.9 Failed induction of labor, unspecified; Z3A.40 40 weeks gestation of pregnancy; Z37.0 Single live birth
CPT/HCPCS: 36415; 59409; 80048; 85025; 85610; 85730; 86780; 86850; 86900; 86901; 88307-TC